=== PATIENT | female | born 1970 | race American Indian/Alaskan Native ===

== ENCOUNTER 2017-06-06 02:27 | Emergency (ER) | payer MEDICARE ==
[2017-06-06] MEDS ORDERED: Sodium Chloride 0.9% 1,000 ML IV ONE ×3 (03:44→10:47)
[2017-06-06 03:55] LABS: BASO % 0.4 % (0.0-2.0); EOS % 0.1 % (0.0-4.0); HEMATOCRIT 38.4 % (34.0-47.0); LYMPH # 1.3 K/uL (1.0-4.3); LYMPH % 11.6 % (20.0-40.0); MEAN CELL VOLUME 86.1 fL (81.0-99.0); MEAN CORPUSCULAR HEMOGLOBIN 28.1 pg (27.0-31.0); MEAN CORPUSCULAR HGB CONC 32.6 g/dL (33.0-37.0); MEAN PLATELET VOLUME 8.1 fL (7.2-11.7); MONO # 0.7 K/uL (0.0-0.8); MONO % 6.1 % (0.0-10.0); NRBC % 0.1 % (0.0-2.0); RED CELL DISTRIBUTION WIDTH 13.9 % (11.5-14.5); WHITE BLOOD COUNT 11.5 K/uL (4.8-10.8)
[2017-06-06 04:01] LABS: RBC URINE 30 /hpf (0-3); URINE BACTERIA RARE (<OCC); URINE BILIRUBIN NEGATIVE (NEGATIVE); URINE BLOOD 1+ (NEGATIVE); URINE COLOR Yellow (YELLOW); URINE GLUCOSE (UA) 3+ mg/dL (Normal); URINE KETONE 1+ mg/dL (NEGATIVE); URINE LEUKOCYTE ESTERASE 1+ Leu/uL (Negative); URINE PROTEIN 2+ mg/dL (NEGATIVE); URINE UROBILINOGEN NORMAL mg/dL (0.2-1.0); WBC URINE 80 /hpf (0-5)
[2017-06-06 04:11] LABS: ALB/GLOB RATIO 1.1 (1.0-2.1); ALKALINE PHOSPHATASE 142 U/L (38-126); ALT/SGPT 34 U/L (9-52); AST/SGOT 26 U/L (14-36); BILIRUBIN,TOTAL 0.5 mg/dL (0.2-1.3); BLOOD UREA NITROGEN 21 mg/dL (7-17); CALCIUM 9.6 mg/dl (8.6-10.4); CARBON DIOXIDE 30 mmol/L (22-30); CHLORIDE 90 mmol/L (98-107); GFR AFRICAN-AMERICAN > 60; GLUCOSE,RANDOM 313 mg/dL (65-105); POTASSIUM 4.2 mmol/L (3.6-5.2); SODIUM 136 mmol/L (132-148); TOTAL PROTEIN 7.5 g/dL (6.3-8.3)
[2017-06-06 04:33] LABS: VENOUS BLOOD GAS BASE EXCESS 6.6 mmol/L (0.0-2.0); VENOUS BLOOD GAS PCO2 44 mmHg (40-60); VENOUS BLOOD PH 7.46 (7.32-7.43)
--- NOTE | 2017-06-06 05:13 | C.PDOC ---
History Of Present Illness <Sheeba De La Rosa - Last Filed: 06/06/17 07:06> <Ekaterina Casper - Last Filed: 06/06/17 07:44> 47 y/o female, with PMHx of NIDDM, presents to the ED for evaluation of abdominal pain, nausea, and vomiting which has been ongoing questionably for around 2 weeks. Patient states she "escaped" from [facility] after being admitted for 5 days. Patient is a poor historian; she appears to have racing thoughts and goes off on tangents when speaking, making it very challenging to obtain a clear history. Patient denies any psychiatric history. (Sheeba De La Rosa) History Per: Patient History/Exam Limitations: no limitations Onset/Duration Of Symptoms: Other (2 weeks ) Current Symptoms Are (Timing): Still Present Location Of Pain/Discomfort: Diffuse Quality Of Discomfort: "Pain" Associated Symptoms: Nausea, Vomiting Additional History Per: Patient <Sheeba De La Rosa - Last Filed: 06/06/17 07:06> <Ekaterina Casper - Last Filed: 06/06/17 07:44> Time Seen by Provider: 06/06/17 02:58 Chief Complaint (Nursing): Abdominal Pain Past Medical History Reviewed: Historical Data, Nursing Documentation, Vital Signs - Medical History PMH: Anxiety, Asthma, Depression, Diabetes, HTN Denies: Hepatitis, HIV, Chronic Kidney Disease, Seizures, Sexually Transmitted Disease Surgical History: Family History: States: Unknown Family Hx - Social History Hx Tobacco Use: Yes Hx Alcohol Use: No Hx Substance Use: No - Immunization History Hx Tetanus Toxoid Vaccination: No Hx Influenza Vaccination: No Hx Pneumococcal Vaccination: No <Sheeba De La Rosa - Last Filed: 06/06/17 07:06> Review Of Systems Gastrointestinal: Positive for: Nausea, Vomiting, Abdominal Pain <Sheeba De La Rosa - Last Filed: 06/06/17 07:06> Physical Exam - Physical Exam Appears: Non-toxic, No Acute Distress Skin: Normal Color, Warm, Dry Head: Atraumatic, Normacephalic Eye(s): bilateral: Normal Inspection Oral Mucosa: Dry Neck: Supple Chest: Symmetrical, No Deformity, No Tenderness Cardiovascular: Rhythm Regular, No Murmur Respiratory: Normal Breath Sounds, No Rales, No Rhonchi, No Wheezing Gastrointestinal/Abdominal: Soft, No Tenderness, No Distention, No Guarding, No Rebound Extremity: Normal ROM, Capillary Refill (less than 2 seconds ) Neurological/Psych: Oriented x3 <Sheeba De La Rosa - Last Filed: 06/06/17 07:06> ED Course And Treatment - Laboratory Results Result Diagrams: 06/06/17 03:52 06/06/17 03:52 ECG: Interpreted By Me, Viewed By Me ECG Rhythm: Sinus Rhythm Interpretation Of ECG: Normal Sinus Rhythm at rate 93bpm. Nonspecific ST abnormality. Rate From EC O2 Sat by Pulse Oximetry: 98 (on RA) Pulse Ox Interpretation: Normal <Sheeba De La Rosa - Last Filed: 06/06/17 07:06> - Laboratory Results Result Diagrams: 06/06/17 03:52 06/06/17 03:52 <Ekaterina Casper - Last Filed: 06/06/17 07:44> Medical Decision Making <Sheeba De La Rosa - Last Filed: 06/06/17 07:06> <Ekaterina Casper - Last Filed: 06/06/17 07:44> Medical Decision Making: Impression: 47 y/o female with nausea, vomiting, and abdominal pain Plan: * labs * Zofran IV * IV Fluids * reassess and disposition Prior Records Reviewed: Review of prior records shows no record of recent hospital admission. Progress: 630 am, labs ordered and reviewed. Patient received Zofran IV and IV Fluids. Patient has been receiving IV fluids in the ED for around 4 hours and was resting comfortably all night, now patient complains of nausea, a burning sensation to her chest and chest wall tenderness and is agitated, . Will order EKG and Pepcid, get abdoninal ct, trop, ativan and re-eval. . 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 - Scribe Statement The provider has reviewed the documentation as recorded by the Scribe (Stephanie Gonzales) <Sheeba De La Rosa - Last Filed: 06/06/17 07:06> <Ekaterina Casper - Last Filed: 06/06/17 07:44> - Scribe Statement All medical record entries made by the Scribe were at my direction and personally dictated by me. I have reviewed the chart and agree that the record accurately reflects my personal performance of the history, physical exam, medical decision making, and the department course for this patient. I have also personally directed, reviewed, and agree with the discharge instructions and disposition. (Sheeba De La Rosa) Physician Patient Turnover Patient Signed Over To: Ekaterina Casper Handoff Comments: f/u ct scan, trop, re-eval pt. suggest likely admission for uti/iv antibiotic. dm control. <Sheeba De La Rosa - Last Filed: 06/06/17 07:06> Addendum <Sheeba De La Rosa - Last Filed: 06/06/17 07:06> <Ekaterina Casper - Last Filed: 06/06/17 07:44> Addendum: 06/06/17 07:38 Patient endorsed to me by SIL Wheeler at the end of her shift. Patient with hx DM , HTN and phych hx. Pt c/o NV, abdominal pain. Positive for cocaine and marijuana, On exam: sleeping comfortably, abdomen soft. Hx and physical unreliable with this patient because she is very disorganized. Pending CT Abdomen. Reffusing PO contrast. Just wants to sleep. (Ekaterina Casper)
[2017-06-06] MEDS ORDERED: Sodium Chloride 0.9% 1,000 ML IV SCH (05:15)
[2017-06-06] MEDS ORDERED: Aluminum Hydroxide/Magnesium Hydroxide Susp (30 mL) ONE (06:26)
[2017-06-06] MEDS ORDERED: Iohexol 240 (50 ml) PO ONE (06:46)
[2017-06-06] MEDS ORDERED: Aluminum Hydroxide/Magnesium Hydroxide Susp (30 mL) PO STA (06:47)
[2017-06-06] MEDS ORDERED: Iohexol 240 (50 ml) ONE (06:56)
[2017-06-06] MEDS ORDERED: Iodixanol 320 MG/ML 100 ML BOTTLE IV ONE (08:06)
--- NOTE | 2017-06-06 09:37 | CT ---
PROCEDURE: CT Abdomen and Pelvis with contrast HISTORY: ab pain COMPARISON: None. TECHNIQUE: Contrast dose: Visipaque 320, 100 cc Radiation dose: Total exam DLP = 792 mGy-cm. This CT exam was performed using one or more of the following dose reduction techniques: Automated exposure control, adjustment of the mA and/or kV according to patient size, and/or use of iterative reconstruction technique. FINDINGS: LOWER THORAX: Unremarkable. LIVER: Diffuse fatty infiltration liver is identified without discrete mass appreciated. No gross intrahepatic biliary dilatation is appreciated. GALLBLADDER AND BILE DUCTS: The gallbladder is distended with the wall not significantly thickened. No radiodense cholelithiasis or pericholecystic fluid collection is related. PANCREAS: Unremarkable. No gross lesion or ductal dilatation. SPLEEN: Unremarkable. ADRENALS: Unremarkable. No mass. KIDNEYS AND URETERS: Unremarkable. No hydronephrosis. No solid mass. VASCULATURE: Unremarkable. No aortic aneurysm. BOWEL: The lack of oral contrast limits evaluation of small and large bowel as well as the stomach, which is completely collapsed. Thickening of the ascending colon is questioned distal to the cecum and may reflect element of segmental colitis of indeterminate etiology. Consider infectious or inflammatory causes with ischemia or neoplasm not favored. APPENDIX: Normal appendix. PERITONEUM: Unremarkable. No free fluid. No free air. LYMPH NODES: [id number] bilateral inguinal lymphadenopathy is appreciated including a 2.6 x 1.3 cm right inguinal lymph node and a 2.3 x 1.8 cm left inguinal lymph node. Additional smaller but mildly enlarged lymph nodes are appreciated bilaterally as well. BLADDER: Unremarkable. REPRODUCTIVE: Air and likely phlegmon are appreciate the right pelvic side wall lateral and inferior to the plane of the right adnexal compartment suspicious for advanced cystitis or possible tubo-ovarian abscess. A dilated fallopian tube is not identified with remainder the right adnexal compartment unremarkable in fact. Etiology of this abscess is not clear although the right urinary bladder wall is irregularly thickened with questionable emphysema and cystitis may be the primary etiology. Further clinical correlation is advised. BONES: No acute fracture. OTHER FINDINGS: None. IMPRESSION: 1. Phlegmon or early abscess is seen in the right pelvic sidewall inferiorly medial lateral to and likely involving the right side of the urinary bladder wall suspicious for cystitis although tubo-ovarian abscess is possible. Dilated right fallopian tube is not identified however and further clinical correlation is advised. 2. No bowel obstruction appreciated however right gabino colon is questionably inflamed suggesting segmental colitis. The lack of oral contrast limits the evaluation of the stomach and small as well as large bowel. Please see discussion above. 3. Mild to moderate bilateral inguinal lymphadenopathy. .
[2017-06-06 10:36] VITALS: RESP 18; O2SAT 99
[2017-06-06] MEDS ORDERED: Azithromycin 500mg/250ML NS 500 MG/250 ML BAG IVPB STA (10:47)
[2017-06-06] MEDS ORDERED: cefTRIAXone IV 1 gm in Dextros 50 ML IVPB ONE ×2 (10:47→12:03)
[2017-06-06] MEDS ORDERED: Sodium Chloride 0.9% 1,000 ML ONE (11:02)
[2017-06-06] MEDS ORDERED: Azithromycin 500mg/250ML NS 500 MG/250 ML BAG IVPB ONE (12:03)
--- NOTE | 2017-06-06 14:06 | US ---
HISTORY: pelvic abscess COMPARISON: Comparison is made to the previous same-day CT of the abdomen and pelvis TECHNIQUE: Transabdominal and endovaginal ultrasound examination of the pelvis was performed. FINDINGS: UTERUS: Measures 8.2 x 3.1 x 5 cm. The uterus is anteverted demonstrate heterogeneous echotexture without evidence of discrete mass. No fibroid or other mass lesion seen. ENDOMETRIUM: Measures 5 mm in diameter. Unremarkable. CERVIX: No cervical abnormality identified. RIGHT OVARY: Measures 3.8 x 2.3 x 2.7 cm. No solid mass. Normal flow. LEFT OVARY: Measures 3.1 x 2 x 2.7 cm. No solid mass. Normal flow. FREE FLUID: No significant free fluid noted. OTHER FINDINGS: There are small echogenic foci adjacent to the uterus likely represent droplet of air seen in the previous CT. Incidentally noted is right bladder wall thickening best seen on image 37, 38 series 1. IMPRESSION: No ultrasound evidence of abscess formation in the pelvis. Heterogeneous uterus without evidence of discrete mass. Small echogenic foci seen adjacent to the uterus likely represent extraluminal air seen in the previous CT. Incidentally noted and partially imaged right bladder wall thickening. Further assessment of the urinary bladder is recommended.
[2017-06-06 19:00] VITALS: BP 142/82; PULSE 89; TEMP 98.2
[2017-06-08 19:59] LABS: VENOUS BLOOD GAS BASE EXCESS 6.8 mmol/L (0.0-2.0); VENOUS BLOOD GAS PCO2 43 mmHg (40-60); VENOUS BLOOD PH 7.47 (7.32-7.43)
== END 2017-06-06 18:50 | disposition home or self-care (01) ==
LOC: C.ER 02:27
DX: R10.9 Unspecified abdominal pain (principal)
CPT/HCPCS: 74177; 76830; 76856; 80053; 81001; 82009; 82803; 82948; 84484; 84703; 85025; 87040; 96361; 96365; 96367; 96375; 99285; G0480; J0456; J0696; J2060; J2405; J7040; Q9967

== ENCOUNTER 2017-06-08 17:01 | Emergency (ER) | payer MEDICARE ==
[2017-06-08 17:19] VITALS: TEMP 98.1
[2017-06-08] MEDS ORDERED: Sodium Chloride 0.9% 1,000 ML IV ONE (19:19)
--- NOTE | 2017-06-08 19:19 | C.PDOC ---
History Of Present Illness The patient presents today with complaints of nausea, vomiting and reports she feels as if her blood sugar is high. Patient also reports feeling anxious and has some flight of ideas. She denies any other medical complaints. Time Seen by Provider: 06/08/17 19:18 Chief Complaint (Nursing): Abdominal Pain History Per: Patient History/Exam Limitations: no limitations Onset/Duration Of Symptoms: Days Current Symptoms Are (Timing): Still Present Associated Symptoms: Nausea, Vomiting Past Medical History Reviewed: Historical Data, Nursing Documentation, Vital Signs Vital Signs: Last Vital Signs Temp 98.1 F 06/08/17 17:11 Pulse 98 H 06/08/17 17:11 Resp 20 06/08/17 17:11 BP 129/79 06/08/17 17:11 Pulse Ox 97 06/08/17 19:33 - Medical History PMH: Anxiety, Asthma, Depression, Diabetes, HTN Denies: Hepatitis, HIV, Chronic Kidney Disease, Seizures, Sexually Transmitted Disease Surgical History: - [facility] FOR SUBSTANCE ABUSE TREATMENT (07/01/15) Family History: States: Unknown Family Hx - Social History Hx Tobacco Use: Yes Hx Alcohol Use: No Hx Substance Use: No - Immunization History Hx Tetanus Toxoid Vaccination: No Hx Influenza Vaccination: No Hx Pneumococcal Vaccination: No Review Of Systems Constitutional: Positive for: Other (elevated blood sugar) Gastrointestinal: Positive for: Nausea, Vomiting Psych: Positive for: Anxiety Physical Exam - Physical Exam Appears: Non-toxic, Other (anxious) Skin: Warm, Dry Head: Normacephalic Eye(s): bilateral: Normal Inspection Lips: Other (dry) Teeth: Other (poor dentition) Neck: Supple Chest: Symmetrical Cardiovascular: Rhythm Regular Respiratory: No Decreased Breath Sounds, No Accessory Muscle Use Gastrointestinal/Abdominal: Bowel Sounds, Soft, No Tenderness Extremity: No Deformity, No Swelling Pulses: Left Dorsalis Pedis: Normal, Right Dorsalis Pedis: Normal Neurological/Psych: Other (flight of ideas) ED Course And Treatment - Laboratory Results Result Diagrams: 06/08/17 19:47 06/08/17 19:47 O2 Sat by Pulse Oximetry: 97 (RA) Pulse Ox Interpretation: Normal Progress Note: Labs, IV Fluids and Zofran ordered. Reevaluation Time: 21:55 Reassessment Condition: Improved Disposition Counseled Patient/Family Regarding: Studies Performed, Diagnosis, Need For Followup, Rx Given - Disposition Referrals: Greyson Cardenas MD [Medical Doctor] - Disposition: HOME/ ROUTINE Disposition Time: 19:19 Condition: FAIR Prescriptions: Ondansetron ODT [Zofran ODT] 1 odt PO BID PRN #10 odt PRN Reason: Nausea/Vomiting Pantoprazole Sodium [Protonix] 40 mg PO DAILY #15 ect Instructions: Abdominal Pain (ED), Acute Nausea and Vomiting (ED), Diabetic Hyperglycemia (ED) Forms: [employer] (Yemeni) - Clinical Impression Clinical Impression: Abdominal pain, Nausea & vomiting, Hyperglycemia - Scribe Statement The provider has reviewed the documentation as recorded by the Renay Billy Provider Attestation: All medical record entries made by the Renay were at my direction and personally dictated by me. I have reviewed the chart and agree that the record accurately reflects my personal performance of the history, physical exam, medical decision making, and the department course for this patient. I have also personally directed, reviewed, and agree with the discharge instructions and disposition.
[2017-06-08] MEDS ORDERED: Sodium Chloride 0.9% 1,000 ML ONE (19:46)
[2017-06-08 19:52] LABS: BASO # 0.1 K/uL (0.0-0.2); BASO % 0.8 % (0.0-2.0); EOS # 0.1 K/uL (0.0-0.7); EOS % 1.4 % (0.0-4.0); HEMATOCRIT 39.7 % (34.0-47.0); LYMPH # 2.9 K/uL (1.0-4.3); MEAN CELL VOLUME 85.6 fL (81.0-99.0); MEAN CORPUSCULAR HEMOGLOBIN 28.5 pg (27.0-31.0); MEAN CORPUSCULAR HGB CONC 33.2 g/dL (33.0-37.0); MEAN PLATELET VOLUME 7.6 fL (7.2-11.7); MONO # 0.7 K/uL (0.0-0.8); MONO % 6.6 % (0.0-10.0); RED CELL DISTRIBUTION WIDTH 13.6 % (11.5-14.5); WHITE BLOOD COUNT 10.1 K/uL (4.8-10.8)
[2017-06-08 20:03] LABS: CHLORIDE 97 mmol/L (98-107); POTASSIUM 3.7 mmol/L (3.6-5.2); SODIUM 139 mmol/L (132-148)
[2017-06-08 20:05] LABS: ALB/GLOB RATIO 1.2 (1.0-2.1); ALKALINE PHOSPHATASE 111 U/L (38-126); ALT/SGPT 36 U/L (9-52); AST/SGOT 24 U/L (14-36); BILIRUBIN,TOTAL 0.7 mg/dL (0.2-1.3); BLOOD UREA NITROGEN 19 mg/dL (7-17); CARBON DIOXIDE 31 mmol/L (22-30); GFR AFRICAN-AMERICAN > 60; GLUCOSE,RANDOM 176 mg/dL (65-105); TOTAL PROTEIN 7.7 g/dL (6.3-8.3)
[2017-06-08 20:06] LABS: CALCIUM 9.7 mg/dl (8.6-10.4)
[2017-06-08 22:30] VITALS: BP 124/75; PULSE 76; RESP 18; O2SAT 99
== END 2017-06-08 22:29 | disposition home or self-care (01) ==
LOC: C.ER 17:01
DX: E11.65 Type 2 diabetes mellitus with hyperglycemia (principal); R11.2 Nausea with vomiting, unspecified; I10 Essential (primary) hypertension; F41.9 Anxiety disorder, unspecified; F17.210 Nicotine dependence, cigarettes, uncomplicated
CPT/HCPCS: 80053; 82009; 82803; 83690; 85025; 96361; 96374; 99284; J2405; J7040

== ENCOUNTER 2017-09-07 15:08 | Inpatient (IN) | payer MEDICARE ==
--- NOTE | 2017-09-07 16:20 | C.PDOC ---
History Of Present Illness 47 y/o female, with history of diabetes, presents to the ER for detox from alcohol and substance abuse. Patient was prescreened. Patient states that she drank alcohol prior to arrival. Time Seen by Provider: 09/07/17 15:52 Chief Complaint (Nursing): Substance Abuse History Per: Patient History/Exam Limitations: no limitations Onset/Duration Of Symptoms: Hrs Current Symptoms Are (Timing): Still Present Past Medical History Reviewed: Historical Data, Nursing Documentation, Vital Signs Vital Signs: Last Vital Signs Temp 98.2 F 09/07/17 18:42 Pulse 89 09/07/17 18:42 Resp 18 09/07/17 18:42 BP 152/82 H 09/07/17 18:42 Pulse Ox 99 09/07/17 18:42 - Medical History PMH: Anxiety, Asthma, Depression, Diabetes, HTN Denies: Hepatitis, HIV, Chronic Kidney Disease, Seizures, Sexually Transmitted Disease Surgical History: - [facility]IFICATION SERVICES FOR SUBSTANCE ABUSE TREATMENT (07/01/15) Family History: States: No Known Family Hx - Social History Hx Tobacco Use: Yes Hx Alcohol Use: Yes Hx Substance Use: Yes - Immunization History Hx Tetanus Toxoid Vaccination: No Hx Influenza Vaccination: No Hx Pneumococcal Vaccination: No Review Of Systems Except As Marked, All Systems Reviewed And Found Negative. 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 17:[address] Rivas. Patient to be admitted to hospital. Disposition Discussed With DrChio: Jaxon Rivas Doctor Will See Patient In The: Hospital - Disposition Disposition: HOSPITALIZED Disposition Time: 18:00 Condition: STABLE - POA Present On Arrival: None - Clinical Impression Clinical Impression: Drug abuse, cocaine type, Alcohol abuse - PA / WELDER GAS / Resident Statement MD/DO has reviewed & agrees with the documentation as recorded. - Scribe Statement The provider has reviewed the documentation as recorded by the Kendalibe oHme Correa Provider Attestation All medical record entries made by the Kendalibkristopher were at my direction and personally dictated by me. I have reviewed the chart and agree that the record accurately reflects my personal performance of the history, physical exam, medical decision making, and the department course for this patient. I have also personally directed, reviewed, and agree with the discharge instructions and disposition. Decision To Admit - Pt Status Changed To: Hospital Disposition Of: Inpatient - Admit Certification Admit to Inpatient:: After my assessment, the patient will require hospitalization for at least two midnights. This is because of the severity of symptoms shown, intensity of services needed, and/or the medical risk in this patient being treated as an outpatient. - InPatient: Physician Admission Certification: I certify that this patient requires 2 or more midnights of care for the following reason:: Alcohol abuse disorder - . Bed Request Type: Detox Admitting Physician: Jaxon Rivas Patient Diagnosis: Drug abuse, cocaine type, Alcohol abuse
[2017-09-07 16:41] LABS: BASO # 0.1 K/uL (0.0-0.2); EOS # 0.2 K/uL (0.0-0.7); LYMPH # 1.7 K/uL (1.0-4.3); LYMPH % 29.2 % (20.0-40.0); MEAN CORPUSCULAR HEMOGLOBIN 28.6 pg (27.0-31.0); MEAN CORPUSCULAR HGB CONC 32.9 g/dL (33.0-37.0); MONO # 0.4 K/uL (0.0-0.8); NRBC % 0.1 % (0.0-2.0); RED CELL DISTRIBUTION WIDTH 14.3 % (11.5-14.5)
[2017-09-07 16:43] LABS: RBC URINE 4 /hpf (0-3); URINE BACTERIA RARE (<OCC); URINE BILIRUBIN NEGATIVE (NEGATIVE); URINE BLOOD 2+ (NEGATIVE); URINE COLOR Yellow (YELLOW); URINE GLUCOSE (UA) 1+ mg/dL (Normal); URINE KETONE NEGATIVE (NEGATIVE); URINE LEUKOCYTE ESTERASE TRACE Leu/uL (Negative); URINE PROTEIN 2+ mg/dL (NEGATIVE); URINE UROBILINOGEN NORMAL mg/dL (0.2-1.0); WBC URINE 4 /hpf (0-5)
[2017-09-07 16:57] LABS: ALB/GLOB RATIO 1.3 (1.0-2.1); ALCOHOL SERUM < 10 mg/dl (0-10); ALKALINE PHOSPHATASE 103 U/L (38-126); ALT/SGPT 45 U/L (9-52); AST/SGOT 30 U/L (14-36); BILIRUBIN,TOTAL 0.3 mg/dL (0.2-1.3); BLOOD UREA NITROGEN 16 mg/dL (7-17); CALCIUM 8.6 mg/dl (8.6-10.4); CARBON DIOXIDE 29 mmol/L (22-30); CHLORIDE 103 mmol/L (98-107); GFR AFRICAN-AMERICAN > 60; GLUCOSE,RANDOM 187 mg/dL (65-105); POTASSIUM 4.1 mmol/L (3.6-5.2); SODIUM 139 mmol/L (132-148); TOTAL PROTEIN 7.5 g/dL (6.3-8.3)
--- NOTE | 2017-09-07 18:24 | PCM.BM ---
<Mary Kay Rogers - Last Filed: 09/07/17 18:22> Treatment Plan Problems - Problems identified on initial assessmt potiential for opiate withdrawal Date Initiated: 09/07/17 Time Initiated: 18:23 Assessment reference: NA Status: Active Treatment assets and liabiliti Patient Assests: ADL independent Patient Liabilities: substance abuse, medical problems - Milieu Protocol Maintain good personal hygiene: daily Encourage regular showers, daily Remind patient to perform daily oral care, daily Assist patient to perform ADL's Maintain personal safety: every shift Educate patient to report safety concerns to staff, every shift Monitor environment for contraband/sharps Medication safety: Monitor for expected outcome, potential side effects: every shift, Assess barriers to learning: every shift, Assess readiness for medication education: every shift <Jaxon Rivas - Last Filed: 09/09/17 17:25> - Diagnosis (1) Alcohol use disorder, severe, dependence Status: Acute Interventions: 09/09/17 17:19 Assess 7x/week regarding severity of withdrawal Educate regarding risks, benefits, side effects and alternatives of medications Use Motivational Interviewing for abstinence Use CBT for relapse prevention Medication management for withdrawal symptoms Encourage medication assisted treatment (2) Cocaine use disorder, severe, dependence Status: Acute Interventions: 09/09/17 17:19 Assess 7x/week regarding severity of withdrawal Educate regarding risks, benefits, side effects and alternatives of medications Use Motivational Interviewing for abstinence Use CBT for relapse prevention Medication management for withdrawal symptoms Encourage medication assisted treatment (3) Major depressive disorder, recurrent, severe with psychotic features Status: Acute Interventions: 09/09/17 17:25 Assess/adjust medications daily and /or as needed * See patient on an individual basis 7x/week to assess status of hallucinations * Discuss risks, benefits, side effects and alternatives of medications (4) Chronic post-traumatic stress disorder (PTSD) Status: Acute Interventions: 09/09/17 17:25 Assess/adjust medications daily and /or as needed * See patient on an individual basis 7x/week to assess status of hallucinations * Discuss risks, benefits, side effects and alternatives of medications
[2017-09-07] MEDS ORDERED: traZODone 25 mg Tab PO PRN (20:17)
[2017-09-07] MEDS ORDERED: (Novolog) Insulin Aspart, Recombinant 100 u/ml 10 ml vial SC STA (20:41)
[2017-09-07] MEDS: (Novolog) Insulin Aspart, Recombinant 100 u/ml 10 ml vial SC SCH (21:07)
[2017-09-08] MEDS: (Novolog) Insulin Aspart, Recombinant 100 u/ml 10 ml vial SC SCH ×4 (07:48→22:07)
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
[2017-09-08] MEDS: Pantoprazole 40 mg EC Tab PO SCH (15:22)
[2017-09-08] MEDS: Multiple Vitamins Tab PO SCH (15:22)
[2017-09-09] MEDS ORDERED: Aluminum Hydroxide/Magnesium Hydroxide Susp (30 mL) PO PRN (07:33)
[2017-09-09] MEDS: (Novolog) Insulin Aspart, Recombinant 100 u/ml 10 ml vial SC SCH ×5 (08:40→22:01)
--- NOTE | 2017-09-09 09:54 | PCM.RRT ---
<Franca Huitron - Last Filed: 09/09/17 09:51> DENTAL MECHANIC Nurses Assessment - Situation Date: 09/09/17 Time DENTAL MECHANIC was called: 08:55 DENTAL MECHANIC Responder Arrival Time:: 09:00 DENTAL MECHANIC Location:: Med/Detox Room Number: 760B DENTAL MECHANIC Reason for Call: Hypertension DENTAL MECHANIC Called By: RN - IV IV Inserted during DENTAL MECHANIC?: No - Respiratory DENTAL MECHANIC Delivery Method: Room Air Received Nebulizer Treatments: No Was the Patient Ventilated with Bag/Mask 100% O2?: No Secretions Suctioned?: No Was the Patient Intubated?: No Was the Patient Placed on a Ventilator?: No - Medication Medications Administered During DENTAL MECHANIC: Ativan 2 mg I/M - Diagnostic Test Ordered EKG: Yes Chest X-Ray: No CT Scan: No - Stat Labs Ordered DENTAL MECHANIC Other Labs Ordered: ETHEL Panel CPR started during DENTAL MECHANIC?: No - Vital Signs Vital Signs: Rapid Response Vital Sign Blood Pressure 212/105 Pulse Rate 100 Respiratory Rate 18 Temperature 97.3 F Oxygen Saturation 96 - Zenaida Coma Scale Coma Scale Eye Opening: Spontaneous Coma Scale Motor: Obeys Commands Movement Coma Scale Verbal: Confused/able to answer Coma Scale Total: 14 - Time DENTAL MECHANIC Ended Time DENTAL MECHANIC Ended: 09:25 - Vital Signs at end of DENTAL MECHANIC Vital Signs at end of DENTAL MECHANIC: Rapid Response End Vital Sign Blood Pressure 216/125 Pulse Rate 84 Respiratory Rate 20 Temperature 98.1 F O2 Sat by Pulse Oximetry 96 - Recommendations Notifications: Attending Physician I.Reason for DENTAL MECHANIC - A) Acute Change in Patient: (Select all that apply): Staff member or family is worried about patient Subjective: DENTAL MECHANIC was called 08:53 for high blood pressure. PAtient seen and examined at bedside. writhing with discomfort and stating it feels like something is squeezing her chest. Patient admits to nausea, vomiting. Patient denies fever, chills, headache, diarrhea, constipation. Patient states she is detox for $100 worth of cocaine. Patient admits to marijuana as well. Patient feels like something is crawling on her. - Neurological Status (Select all that apply): Alert, Responsive, Verbal, Lethargic - Respiratory Oxygen Delivery Method: Room Air - Constitutional Appears: Toxic, No Acute Distress, Agitated - Head Head Exam: ATRAUMATIC, NORMAL INSPECTION, NORMOCEPHALIC - Eyes Eye Exam: EOMI, Normal appearance - Respiratory Exam Respiratory Exam: Decreased Breath Sounds, Clear to Ausculation Bilateral, NORMAL BREATHING PATTERN. absent: Accessory Muscle Use - Cardiovascular Exam Cardiovascular Exam: Tachycardia, REGULAR RHYTHM, +S1, +S2 - GI/Abdominal Exam GI & Abdominal Exam: Distended, Soft. absent: Firm, Tenderness - Neurological Exam Neurological Exam: Awake Additional exam: patient appears to be dizzy upon attempt to sit up. - Extremities Exam Extremities Exam: Full ROM, Normal Inspection. absent: Joint Swelling, Pedal Edema Plan - Assessment of Findings&Treatment Plan EKG ETHEL Kendra ordered patient's blood pressure was 200 systolic. Patient switched to telemetry with medicine as consult and psychiatry as primary. will follow <Christopher Gandhi Shelby - Last Filed: 09/09/17 12:59> DENTAL MECHANIC Nurses Assessment - Vital Signs Vital Signs: Rapid Response Vital Sign Blood Pressure 212/105 Pulse Rate 100 Respiratory Rate 18 Temperature 97.3 F Oxygen Saturation 96 - Vital Signs at end of DENTAL MECHANIC Vital Signs at end of DENTAL MECHANIC: Rapid Response End Vital Sign Blood Pressure 194/90 Pulse Rate 88 Respiratory Rate 20 Temperature 98.1 F O2 Sat by Pulse Oximetry 96 Attending/Attestation - Attestation I have personally seen and examined this patient.: Yes I have fully participated in the care of the patient.: Yes I have reviewed all pertinent clinical information, including history, physical exam and plan: Yes Notes (Text): 09/09/17 12:47 Hospitalist: DENTAL MECHANIC was called after the patient was found to have elevated BP of systolic BP 200 range as well as tacycardia She has been vommitting a lot during the day and from what I am being told by the staff she vomitted up all her medication and could not hold down the clonodine as well as the librium that she is supposed to get. My immediate concern was potetial rebound affect from not getting the clonodine and not having medication for drug withdrawl. Orders were given to admininster ativan 2mg IM stat and this was done. Also EKG , and CE drawn. She was anxious and saying that she had nasuea. She vommitted in a basin when we were there. She appeared to be sweaty/diaphoretic as well. Per a brief review of the chart she is at [facility] detox for polysubstance abuse including cocaine. EKG was NSR and looked stable. CE negative as well. I later returned at 11:45 AM to reassess the patient. She was now sleeping, snorring loudly. She looks calm. The systolic BP was 150s at this time. I asked them to search the room in case she could have had amounts of cocaine with her. I explained to the [facility] staff that if she wakes up and is not nauseated - that she should definaly try to take her medications. I'll come by again in a few hours to see her again and if her BP is unstable or there is worsening findings then we can move her to telemetry. thank you Christopher Gandhi
[2017-09-09] MEDS: Multiple Vitamins Tab PO SCH ×2 (10:39→18:40)
[2017-09-09] MEDS: Pantoprazole 40 mg EC Tab PO SCH (10:41)
--- NOTE | 2017-09-09 14:51 | PCM.PYCHPN ---
Psychiatric Progress Note - Psychiatric Progress Note Patient seen today, length of contact: 18 minutes Patient Chief Complaint: "I have stomach pains" Problems Identified/Issues Discussed: Pt was seen and evaluated. Chart reviewed. SENIOR SALES ASSOCIATE was called in the morning for high BP, as well as pt had multiple episodes of vomiting. The pt stated that she had stomach pain, n/v, feeling, hot and cold flushes are worse today. The pt reported that she was abusing alcohol as well as cocaine daily. case discussed with staff and medical team including Dr. Gonzales and Dr. Gandhi. This pt needs more time to stabilize. After care discussed, support and psychoeducation given. DSM 5 Symptoms Update: Alcohol dependence, severe, withdrawal symptoms. Cocaine dependence, Cocaine withdrawal symptoms, Cannabis use d/o, HTN Medication Change: Yes (ativan taper) Medical Record Reviewed: Yes Consults ordered or reviewed: Medicine team Mental Status Examination - Cognitive Function Orientation: Person, Place, Situation, Time Memory: Intact Attention: WNL Concentration: WNL Association: WNL Fund of Knowledge: [facility] Decription of patient's judgement and insights: fair/fair Addtional comments: Cooperative - Mood Mood: Anxious - Affect Affect: Constricted - Speech Speech: Appropriate - Formal Thought Process Formal Thought Process: No Impairment Psychotic Thoughts and Behaviors: denied Additional comments: no delusions, or AVH - Suicidal Ideation Suicidal Ideation: No - Homicidal Ideation Homicidal Ideation: No Goal/Treatment Plan - Goal/Treatment Plan Need for Continued Stay: Discharge may exacerbated symptoms, Other (alcohol withdrawal symtpoms) Progress Toward Problem(s) and Goals/Treatment Plan: Pt needs more time to complete detox. Continue treatment as per primary team. Monitor vitals. Supportive therapy provided. Appreciate medicine team recommendation. Estimated Date of D/C: 09/13/17
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
[2017-09-09] MEDS ORDERED: Enalaprilat 2.5 MG/2 ML IV SCH (18:00)
[2017-09-09] MEDS: (Novolin R) Insulin Human Regular 100 units/ml vial SC SCH (22:01)
[2017-09-10] MEDS ORDERED: Enalaprilat 2.5 MG/2 ML IV SCH (01:34)
[2017-09-10 06:58] LABS: BASO % 0.4 % (0.0-2.0); EOS % 0.1 % (0.0-4.0); HEMATOCRIT 43.7 % (34.0-47.0); LYMPH # 1.1 K/uL (1.0-4.3); LYMPH % 14.3 % (20.0-40.0); MEAN CELL VOLUME 86.1 fL (81.0-99.0); MEAN CORPUSCULAR HEMOGLOBIN 28.5 pg (27.0-31.0); MEAN CORPUSCULAR HGB CONC 33.1 g/dL (33.0-37.0); MEAN PLATELET VOLUME 8.6 fL (7.2-11.7); MONO # 0.6 K/uL (0.0-0.8); MONO % 8.2 % (0.0-10.0); RED CELL DISTRIBUTION WIDTH 14.2 % (11.5-14.5); WHITE BLOOD COUNT 7.4 K/uL (4.8-10.8)
[2017-09-10 07:57] LABS: ALB/GLOB RATIO 1.3 (1.0-2.1); ALKALINE PHOSPHATASE 124 U/L (38-126); ALT/SGPT 33 U/L (9-52); AST/SGOT 28 U/L (14-36); BILIRUBIN,TOTAL 0.5 mg/dL (0.2-1.3); BLOOD UREA NITROGEN 18 mg/dL (7-17); CALCIUM 9.1 mg/dl (8.6-10.4); CARBON DIOXIDE 32 mmol/L (22-30); CHLORIDE 100 mmol/L (98-107); CHOLESTEROL 280 mg/dL (0-199); GFR AFRICAN-AMERICAN > 60; GLUCOSE,RANDOM 281 mg/dL (65-105); MAGNESIUM 1.7 mg/dL (1.6-2.3); PHOSPHOROUS 3.3 mg/dL (2.5-4.5); POTASSIUM 3.9 mmol/L (3.6-5.2); SODIUM 138 mmol/L (132-148); TOTAL PROTEIN 7.5 g/dL (6.3-8.3)
[2017-09-10] MEDS: Enalaprilat 2.5 MG/2 ML IV SCH ×3 (08:10→17:54)
[2017-09-10] MEDS: (Novolin R) Insulin Human Regular 100 units/ml vial SC SCH (09:11)
[2017-09-10] MEDS: (Novolog) Insulin Aspart, Recombinant 100 u/ml 10 ml vial SC SCH ×7 (09:17→22:19)
[2017-09-10] MEDS: Multiple Vitamins Tab PO SCH (11:19)
--- NOTE | 2017-09-10 13:22 | CP.PCM.PN ---
<Sebastien Caballero - Last Filed: 09/10/17 17:19> Subjective - Date & Time of Evaluation Date of Evaluation: 09/10/17 Time of Evaluation: 08:40 - Subjective Subjective: Medicine Progress Note Patient seen and examined at bedside. Patient was in a very deep sleep at the time of encounter. She was unable to be woken by myself and the nurse at bedside. No acute events overnight per nursing. ROS unable to ascertain. Objective - Vital Signs/Intake and Output Vital Signs (last 24 hours): Temp Pulse Resp BP Pulse Ox 97.4 F L 112 H 20 185/86 H 96 09/10/17 07:58 09/10/17 07:58 09/10/17 07:58 09/10/17 08:10 09/10/17 07:58 Intake and Output: 09/10/17 09/10/17 06:59 18:59 Intake Total 240 Balance 240 - Medications Medications: Current Medications Enalapril Maleate (Vasotec) 10 mg PO DAILY [facility] Enalaprilat (Vasotec) 1.25 mg IV BID [facility] Last Admin: 09/10/17 10:45 Dose: Not Given Folic Acid (Folic Acid) 1 mg PO DAILY [facility] Last Admin: 09/10/17 11:19 Dose: Not Given Gabapentin (Neurontin) 100 mg PO TID [facility] Last Admin: 09/10/17 11:20 Dose: Not Given Hydralazine HCl (Apresoline) 10 mg IVP Q6H PRN PRN Reason: for SBP > 160 Last Admin: 09/10/17 09:18 Dose: 10 mg Insulin Aspart (Novolog) 5 unit SC ACHS [facility] Last Admin: 09/10/17 12:07 Dose: 5 unit Insulin Aspart (Novolog) 0 unit SC ACHS [facility] PRN Reason: Protocol Last Admin: 09/10/17 12:08 Dose: 2 unit Lorazepam (Ativan) 2 mg IVP Q4H [facility] Last Admin: 09/10/17 10:53 Dose: Not Given Multivitamins (Hexavitamin) 1 tab PO DAILY [facility] Last Admin: 09/10/17 11:19 Dose: Not Given Nicotine (Nicoderm Cq) 1 patch TD DAILY [facility] Last Admin: 09/10/17 11:20 Dose: Not Given Ondansetron HCl (Zofran Inj) 4 mg IVP Q6H PRN PRN Reason: Nausea/Vomiting Last Admin: 09/09/17 18:21 Dose: 4 mg Quetiapine Fumarate (Seroquel) 50 mg PO HS [facility] Last Admin: 09/09/17 22:04 Dose: Not Given Sertraline HCl (Zoloft) 50 mg PO DAILY [facility] Last Admin: 09/10/17 11:20 Dose: Not Given Thiamine HCl (Vitamin B1 Tab) 100 mg PO DAILY [facility] Last Admin: 09/10/17 11:20 Dose: Not Given - Labs Labs: 09/10/17 06:46 09/10/17 06:46 - Constitutional Appears: No Acute Distress - Head Exam Head Exam: ATRAUMATIC, NORMOCEPHALIC - ENT Exam ENT Exam: Mucous Membranes Moist - Respiratory Exam Respiratory Exam: Clear to Ausculation Bilateral. absent: Rales, Rhonchi, Wheezes - Cardiovascular Exam Cardiovascular Exam: REGULAR RHYTHM, +S1, +S2 - GI/Abdominal Exam GI & Abdominal Exam: Soft, Normal Bowel Sounds. absent: Tenderness - Extremities Exam Extremities Exam: absent: Pedal Edema - Psychiatric Exam Additional comments: Patient in deep sleep. Unable to arouse. - Skin Skin Exam: Dry, Warm Assessment and Plan - Assessment and Plan (Free Text) Plan: Malignant Hypertension All PO medications have been put on hold as patient is unable to tolerate Vasotec 1.25 mg IV BID, last dose will be tonight Trial of Vasotec 10 mg PO daily tomorrow morning Ordered Hydralazine 10mg IVP Q6h PRN for SBP >160 Beta Barby use is contraindicated due to history of recent cocaine use Nausea/ Vomiting Zofran 4mg IVP Q6h PRN for nausea Ordered Clear liquids Diabetes RISS Accucheck ACHS AC insulin reduced from 10U to 5U HgbA1C 7.7 lipid panel: 280 TGs, LDL 142, HDL 133 Hyperlipidemia Once the patient is able to tolerate PO, a statin may be started. Patient will need outpatient follow up since she is high risk for stroke given her diabetes and polysubstance abuse history. Cocaine Use Disorder Management as per primary team Alcohol abuse/ Withdrawal Ativan 2mg IVP Q4h until patient is able to tolerate PO All additional management as per primary team It is likely that the malignant hypertension is due to withdrawal from cocaine and alcohol. However, since the patient is a known diabetic, she will need to start on an BAYRON inhibitor as an outpatient for the renal protective effects. She will also need outpatient follow up and to repeat a lipid panel fasting at least 15 hours prior to blood work. When the primary team (psychiatry) discharges this patient, she will need to go home on an ACEi and a statin. It is very important that the patient follows up with her primary physician because she has many risk factors for strokes. Case DW Dr. Inga Caballero <Hesham Xiong - Last Filed: 09/11/17 16:45> Objective - Vital Signs/Intake and Output Vital Signs (last 24 hours): Temp Pulse Resp BP Pulse Ox 97.9 F 112 H 20 146/84 96 09/11/17 14:31 09/11/17 14:31 09/11/17 14:31 09/11/17 14:31 09/11/17 14:31 Intake and Output: 09/11/17 09/11/17 06:59 18:59 Intake Total 800 400 Balance 800 400 - Medications Medications: Current Medications Amlodipine Besylate (Norvasc) 5 mg PO DAILY [facility] Enalapril Maleate (Vasotec) 10 mg PO DAILY [facility] Last Admin: 09/11/17 09:45 Dose: 10 mg Enoxaparin Sodium (Lovenox) 40 mg SC DAILY [facility] Last Admin: 09/11/17 14:27 Dose: 40 mg Folic Acid (Folic Acid) 1 mg PO DAILY [facility] Last Admin: 09/11/17 09:48 Dose: 1 mg Insulin Aspart (Novolog) 5 unit SC ACHS [facility] Last Admin: 09/11/17 12:25 Dose: 5 unit Insulin Aspart (Novolog) 0 unit SC ACHS [facility] PRN Reason: Protocol Last Admin: 09/11/17 12:25 Dose: 6 unit Lorazepam (Ativan) 1 mg PO Q4H PRN PRN Reason: EtOH withdrawal Multivitamins (Hexavitamin) 1 tab PO DAILY [facility] Last Admin: 09/11/17 09:48 Dose: 1 tab Nicotine (Nicoderm Cq) 1 patch TD DAILY [facility] Last Admin: 09/11/17 11:03 Dose: Not Given Ondansetron HCl (Zofran Inj) 4 mg IVP Q6H PRN PRN Reason: Nausea/Vomiting Last Admin: 09/09/17 18:21 Dose: 4 mg Quetiapine Fumarate (Seroquel) 50 mg PO HS [facility] Last Admin: 09/10/17 22:19 Dose: Not Given Rosuvastatin Calcium (Crestor) 10 mg PO HS [facility] Sertraline HCl (Zoloft) 50 mg PO DAILY [facility] Last Admin: 09/11/17 09:48 Dose: 50 mg Thiamine HCl (Vitamin B1 Tab) 100 mg PO DAILY [facility] Last Admin: 09/11/17 09:47 Dose: 100 mg - Labs Labs: 09/11/17 07:03 09/11/17 07:03 Attending/Attestation - Attestation I have personally seen and examined this patient.: Yes I have fully participated in the care of the patient.: Yes I have reviewed all pertinent clinical information, including history, physical exam and plan: Yes Notes (Text): Patient was seen and examined Patient was getting ativa fro alcohol withdrawal, .s/p Ativan,sleeping We will start her on ACEI,try to avoid prn antihypertensives I agree with the documentation assessment and the plan of the resident
--- NOTE | 2017-09-10 14:50 | PCM.PYCHPN ---
Psychiatric Progress Note - Psychiatric Progress Note Patient seen today, length of contact: 18 minutes Patient Chief Complaint: " I am very sleepy and weak" Problems Identified/Issues Discussed: Patient was seen and evaluated at bedside. Patient was very drowsy, sleepy and unable to participate in answer questions in details. Patient reports that she feels very sleepy and weak. Patient needs more time to stabilize Medication Change: Yes (ativan taper) Medical Record Reviewed: Yes Mental Status Examination - Cognitive Function Orientation: Person, Place, Situation, Time Addtional comments: Unable to evaluate memory, attention, concentration, association due to patient being very sleepy and drowsy - Mood Mood: Depressed - Affect Affect: Depressed - Speech Speech: Appropriate - Formal Thought Process Additional comments: Unable to evaluate formal thought process as patient was very sleepy and unable to participate in a full/substantial conversation - Suicidal Ideation Suicidal Ideation: No - Homicidal Ideation Homicidal Ideation: No Goal/Treatment Plan - Goal/Treatment Plan Need for Continued Stay: Discharge may exacerbated symptoms, Other (alcohol withdrawal symtpoms) Progress Toward Problem(s) and Goals/Treatment Plan: Pt needs more time to complete detox. Continue treatment as per primary team. Monitor vitals. Supportive therapy provided. Appreciate medicine team recommendation. Estimated Date of D/C: 09/13/17
[2017-09-10] MEDS ORDERED: Sodium Chloride 0.9% 1,000 ML IV ONE (21:10)
[2017-09-11] MEDS: Sodium Chloride 0.9% 1,000 ML IV SCH ×2 (05:30→11:05)
[2017-09-11 07:17] LABS: BASO % 0.5 % (0.0-2.0); EOS % 0.2 % (0.0-4.0); HEMATOCRIT 43.5 % (34.0-47.0); LYMPH # 1.3 K/uL (1.0-4.3); LYMPH % 17.1 % (20.0-40.0); MEAN CELL VOLUME 86.8 fL (81.0-99.0); MEAN CORPUSCULAR HGB CONC 33.4 g/dL (33.0-37.0); MEAN PLATELET VOLUME 8.5 fL (7.2-11.7); MONO # 0.7 K/uL (0.0-0.8); MONO % 9.3 % (0.0-10.0); NRBC % 0.2 % (0.0-2.0); RED CELL DISTRIBUTION WIDTH 14.3 % (11.5-14.5); WHITE BLOOD COUNT 7.4 K/uL (4.8-10.8)
[2017-09-11 07:56] LABS: ALB/GLOB RATIO 1.3 (1.0-2.1); ALKALINE PHOSPHATASE 103 U/L (38-126); ALT/SGPT 17 U/L (9-52); AST/SGOT 21 U/L (14-36); BILIRUBIN,TOTAL 0.6 mg/dL (0.2-1.3); BLOOD UREA NITROGEN 24 mg/dL (7-17); CALCIUM 8.8 mg/dl (8.6-10.4); CARBON DIOXIDE 29 mmol/L (22-30); CHLORIDE 101 mmol/L (98-107); GFR AFRICAN-AMERICAN > 60; GLUCOSE,RANDOM 263 mg/dL (65-105); MAGNESIUM 1.8 mg/dL (1.6-2.3); PHOSPHOROUS 4.5 mg/dL (2.5-4.5); POTASSIUM 3.9 mmol/L (3.6-5.2); SODIUM 137 mmol/L (132-148); TOTAL PROTEIN 6.8 g/dL (6.3-8.3)
[2017-09-11] MEDS: (Novolog) Insulin Aspart, Recombinant 100 u/ml 10 ml vial SC SCH ×8 (08:30→21:37)
--- NOTE | 2017-09-11 09:26 | CP.PCM.PN ---
<Melo Guzman - Last Filed: 09/11/17 13:42> Subjective - Date & Time of Evaluation Date of Evaluation: 09/11/17 Time of Evaluation: 09:26 - Subjective Subjective: PGY1 Progress Note for Dr. Xiong Patient was seen and examined this morning at bedside. Patient was difficult to arouse. Every time she was awoken, she fell back to sleep quickly without answering any questions. ROS unattainable. Objective - Vital Signs/Intake and Output Vital Signs (last 24 hours): Temp Pulse Resp BP Pulse Ox 98 F 118 H 18 163/93 H 98 09/11/17 07:00 09/11/17 07:00 09/11/17 07:00 09/11/17 07:00 09/11/17 07:00 Intake and Output: 09/11/17 09/11/17 06:59 18:59 Intake Total 800 Balance 800 - Medications Medications: Current Medications Enalapril Maleate (Vasotec) 10 mg PO DAILY [facility] Folic Acid (Folic Acid) 1 mg PO DAILY [facility] Last Admin: 09/10/17 11:19 Dose: Not Given Gabapentin (Neurontin) 100 mg PO TID [facility] Last Admin: 09/10/17 18:41 Dose: Not Given Sodium Chloride (Sodium Chloride 0.9%) 1,000 mls @ 100 mls/hr IV .Q10H [facility] Last Admin: 09/11/17 05:30 Dose: 100 mls/hr Insulin Aspart (Novolog) 5 unit SC ACHS [facility] Last Admin: 09/10/17 22:19 Dose: Not Given Insulin Aspart (Novolog) 0 unit SC ACHS [facility] PRN Reason: Protocol Last Admin: 09/10/17 22:08 Dose: Not Given Lorazepam (Ativan) 2 mg IVP Q4H [facility] Last Admin: 09/11/17 05:29 Dose: 2 mg Multivitamins (Hexavitamin) 1 tab PO DAILY [facility] Last Admin: 09/10/17 11:19 Dose: Not Given Nicotine (Nicoderm Cq) 1 patch TD DAILY [facility] Last Admin: 09/10/17 11:20 Dose: Not Given Ondansetron HCl (Zofran Inj) 4 mg IVP Q6H PRN PRN Reason: Nausea/Vomiting Last Admin: 09/09/17 18:21 Dose: 4 mg Quetiapine Fumarate (Seroquel) 50 mg PO HS [facility] Last Admin: 09/10/17 22:19 Dose: Not Given Sertraline HCl (Zoloft) 50 mg PO DAILY [facility] Last Admin: 09/10/17 11:20 Dose: Not Given Thiamine HCl (Vitamin B1 Tab) 100 mg PO DAILY [facility] Last Admin: 09/10/17 11:20 Dose: Not Given - Labs Labs: 09/11/17 07:03 09/11/17 07:03 - Constitutional Appears: Non-toxic, No Acute Distress - ENT Exam ENT Exam: Mucous Membranes Moist - Respiratory Exam Respiratory Exam: Clear to Ausculation Bilateral, NORMAL BREATHING PATTERN. absent: Accessory Muscle Use, Respiratory Distress Additional comments: snoring - Cardiovascular Exam Cardiovascular Exam: REGULAR RHYTHM - GI/Abdominal Exam GI & Abdominal Exam: Soft. absent: Distended, Firm, Guarding, Rigid, Tenderness - Extremities Exam Extremities Exam: absent: Pedal Edema - Neurological Exam Neurological Exam: Alert (responded to painful stimuli but quickly fell back asleep) - Skin Skin Exam: Dry, Warm Assessment and Plan - Assessment and Plan (Free Text) Plan: Malignant Hypertension All PO medications have been put on hold as patient is unable to tolerate Vasotec 10 mg PO daily Amlodipine 5 mg PO daily Discontinue NS Beta Barby use is contraindicated due to history of recent cocaine use Nausea/ Vomiting Resolved Zofran 4 mg IVP q6h PRN Started on carbo consistent diet Diabetes RISS Accucheck ACHS AC insulin reduced from 10U to 5U HgbA1C 7.7 Hyperlipidemia lipid panel: 280 TGs, LDL 142, HDL 133 Crestor 10 mg PO HS Cocaine Use Disorder Management as per primary team Alcohol abuse/ Withdrawal Ativan 2mg IVP Q4h - decreased to Ativan 1mg PO q4h PRN All additional management as per primary team Prophylactic Care Lovenox 40 mg SC daily It is likely that the malignant hypertension is due to withdrawal from cocaine and alcohol. However, since the patient is a known diabetic, she will need to start on an BAYRON inhibitor as an outpatient for the renal protective effects. She will also need outpatient follow up and to repeat a lipid panel fasting at least 15 hours prior to blood work. When the primary team (psychiatry) discharges this patient, she will need to go home on an ACEi and a statin. It is very important that the patient follows up with her primary physician because she has many risk factors for strokes. Case discussed with Dr. Inga Woon PGY1 <Hesham Xiong - Last Filed: 09/11/17 16:48> Objective - Vital Signs/Intake and Output Vital Signs (last 24 hours): Temp Pulse Resp BP Pulse Ox 98.7 F 114 H 20 136/83 95 09/11/17 15:10 09/11/17 15:10 09/11/17 15:10 09/11/17 15:10 09/11/17 15:10 Intake and Output: 09/11/17 09/11/17 06:59 18:59 Intake Total 800 400 Balance 800 400 - Medications Medications: Current Medications Amlodipine Besylate (Norvasc) 5 mg PO DAILY [facility] Enalapril Maleate (Vasotec) 10 mg PO DAILY [facility] Last Admin: 09/11/17 09:45 Dose: 10 mg Enoxaparin Sodium (Lovenox) 40 mg SC DAILY [facility] Last Admin: 09/11/17 14:27 Dose: 40 mg Folic Acid (Folic Acid) 1 mg PO DAILY [facility] Last Admin: 09/11/17 09:48 Dose: 1 mg Insulin Aspart (Novolog) 5 unit SC ACHS [facility] Last Admin: 09/11/17 12:25 Dose: 5 unit Insulin Aspart (Novolog) 0 unit SC ACHS [facility] PRN Reason: Protocol Last Admin: 09/11/17 12:25 Dose: 6 unit Lorazepam (Ativan) 1 mg PO Q4H PRN PRN Reason: EtOH withdrawal Multivitamins (Hexavitamin) 1 tab PO DAILY [facility] Last Admin: 09/11/17 09:48 Dose: 1 tab Nicotine (Nicoderm Cq) 1 patch TD DAILY [facility] Last Admin: 09/11/17 11:03 Dose: Not Given Ondansetron HCl (Zofran Inj) 4 mg IVP Q6H PRN PRN Reason: Nausea/Vomiting Last Admin: 09/09/17 18:21 Dose: 4 mg Quetiapine Fumarate (Seroquel) 50 mg PO HS [facility] Last Admin: 09/10/17 22:19 Dose: Not Given Rosuvastatin Calcium (Crestor) 10 mg PO HS [facility] Sertraline HCl (Zoloft) 50 mg PO DAILY [facility] Last Admin: 09/11/17 09:48 Dose: 50 mg Thiamine HCl (Vitamin B1 Tab) 100 mg PO DAILY [facility] Last Admin: 09/11/17 09:47 Dose: 100 mg - Labs Labs: 09/11/17 07:03 09/11/17 07:03 Attending/Attestation - Attestation I have personally seen and examined this patient.: Yes I have fully participated in the care of the patient.: Yes I have reviewed all pertinent clinical information, including history, physical exam and plan: Yes Notes (Text): Patient was seen and examined,Had her breakfast and sleeping.c/o feeling weak and unable to keep her up. stop Ativan 2mg q4hrly,give Ativan 1mg q4hrly prn continue ACEI and statin Add amlodipine monitor BP d/w psychiatrist
[2017-09-11] MEDS: Multiple Vitamins Tab PO SCH (09:48)
[2017-09-11] MEDS: Enoxaparin 40 mg Syringe SC SCH (14:27)
[2017-09-12 06:53] LABS: BASO % 0.4 % (0.0-2.0); EOS % 0.5 % (0.0-4.0); HEMATOCRIT 42.1 % (34.0-47.0); LYMPH # 1.6 K/uL (1.0-4.3); LYMPH % 21.4 % (20.0-40.0); MEAN CELL VOLUME 86.5 fL (81.0-99.0); MEAN CORPUSCULAR HGB CONC 33.6 g/dL (33.0-37.0); MEAN PLATELET VOLUME 8.3 fL (7.2-11.7); MONO # 0.7 K/uL (0.0-0.8); MONO % 8.8 % (0.0-10.0); RED CELL DISTRIBUTION WIDTH 14.4 % (11.5-14.5); WHITE BLOOD COUNT 7.5 K/uL (4.8-10.8)
--- NOTE | 2017-09-12 06:57 | CP.PCM.PN ---
<Melo Guzman - Last Filed: 09/12/17 19:58> Subjective - Date & Time of Evaluation Date of Evaluation: 09/12/17 Time of Evaluation: 06:54 - Subjective Subjective: PGY1 Medicine Note for Dr. Xiong Patient seen and examined at bedside this morning. Patient is more awake and alert this morning. She did not want to wake up for the exam but did answer questions. Patient states she did not sleep well through the night. She states she is anxious. Patient denies fevers, chills, diarrhea, constipation, palpitations, chest pain, abdominal pain, numbness or tingling. Objective - Vital Signs/Intake and Output Vital Signs (last 24 hours): Temp Pulse Resp BP Pulse Ox 99 F 120 H 20 145/81 100 09/12/17 04:00 09/12/17 04:00 09/12/17 04:00 09/12/17 04:00 09/11/17 23:05 Intake and Output: 09/11/17 09/12/17 18:59 06:59 Intake Total 400 480 Balance 400 480 - Medications Medications: Current Medications Amlodipine Besylate (Norvasc) 5 mg PO DAILY [facility] Enalapril Maleate (Vasotec) 10 mg PO DAILY [facility] Last Admin: 09/11/17 09:45 Dose: 10 mg Enoxaparin Sodium (Lovenox) 40 mg SC DAILY [facility] Last Admin: 09/11/17 14:27 Dose: 40 mg Folic Acid (Folic Acid) 1 mg PO DAILY [facility] Last Admin: 09/11/17 09:48 Dose: 1 mg Insulin Aspart (Novolog) 5 unit SC [facility] Last Admin: 09/11/17 21:37 Dose: Not Given Insulin Aspart (Novolog) 0 unit SC [facility] PRN Reason: Protocol Last Admin: 09/11/17 21:20 Dose: Not Given Lorazepam (Ativan) 1 mg PO Q4H PRN PRN Reason: EtOH withdrawal Multivitamins (Hexavitamin) 1 tab PO DAILY [facility] Last Admin: 09/11/17 09:48 Dose: 1 tab Nicotine (Nicoderm Cq) 1 patch TD DAILY [facility] Last Admin: 09/11/17 11:03 Dose: Not Given Ondansetron HCl (Zofran Inj) 4 mg IVP Q6H PRN PRN Reason: Nausea/Vomiting Last Admin: 12/17/17 18:21 Dose: 4 mg Quetiapine Fumarate (Seroquel) 50 mg PO HS [facility] Last Admin: 09/11/17 21:54 Dose: 50 mg Rosuvastatin Calcium (Crestor) 10 mg PO HS [facility] Last Admin: 09/11/17 21:54 Dose: 10 mg Sertraline HCl (Zoloft) 50 mg PO DAILY [facility] Last Admin: 09/11/17 09:48 Dose: 50 mg Thiamine HCl (Vitamin B1 Tab) 100 mg PO DAILY [facility] Last Admin: 09/11/17 09:47 Dose: 100 mg - Labs Labs: 09/11/17 07:03 09/11/17 07:03 - Constitutional Appears: Non-toxic, No Acute Distress - Head Exam Head Exam: ATRAUMATIC, NORMOCEPHALIC - Eye Exam Eye Exam: EOMI, Normal appearance - ENT Exam ENT Exam: Mucous Membranes Moist - Respiratory Exam Respiratory Exam: Clear to Ausculation Bilateral, NORMAL BREATHING PATTERN. absent: Rales, Wheezes Additional comments: falls back to sleep very quickly, loud snoring. - Cardiovascular Exam Cardiovascular Exam: REGULAR RHYTHM, +S1 - GI/Abdominal Exam GI & Abdominal Exam: Soft, Normal Bowel Sounds. absent: Distended, Firm, Guarding, Rigid, Tenderness - Neurological Exam Neurological Exam: Awake (but very lethargic. falls back to sleep quickly.), Oriented x3 - Psychiatric Exam Additional comments: lethargic - Skin Skin Exam: Dry, Warm Assessment and Plan - Assessment and Plan (Free Text) Plan: Malignant Hypertension Resolved Vasotec 10 mg PO daily Amlodipine 5 mg PO daily Beta Barby use is contraindicated due to history of recent cocaine use Nausea/ Vomiting Resolved Zofran 4 mg IVP q6h PRN Started on carbo consistent diet Diabetes RISS Accucheck ACHS AC insulin reduced from 10U to 5U HgbA1C 7.7 Hyperlipidemia lipid panel: 280 TGs, LDL 142, HDL 133 Crestor 10 mg PO HS Cocaine Use Disorder Management as per primary team Alcohol abuse/ Withdrawal Ativan 1mg PO q4h PRN All additional management as per primary team Prophylactic Care Lovenox 40 mg SC daily It is likely that the malignant hypertension is due to withdrawal from cocaine and alcohol. However, since the patient is a known diabetic, she will need to start on an BAYRON inhibitor as an outpatient for the renal protective effects. She will also need outpatient follow up and to repeat a lipid panel fasting at least 15 hours prior to blood work. When the primary team (psychiatry) discharges this patient, she will need to go home on an ACEi and a statin. It is very important that the patient follows up with her primary physician because she has many risk factors for strokes. Patient is stable for discharge from medical team standpoint. She is to continue with her detox treatment as per primary team. Medicine team signing off , please re-consult as needed. Case discussed with Dr. Inga Guzman PGY1 <Hesham Xiong - Last Filed: 09/14/17 17:46> Objective - Vital Signs/Intake and Output Vital Signs (last 24 hours): Temp Pulse Resp BP Pulse Ox 98.9 F 101 H 20 164/93 H 100 09/14/17 15:14 09/14/17 15:14 09/14/17 15:14 09/14/17 15:14 09/14/17 15:14 Intake and Output: 09/14/17 09/14/17 06:59 18:59 Intake Total 420 400 Balance 420 400 - Medications Medications: Current Medications Al Hydrox/Mg Hydrox/Simethicone (Maalox 30 Ml) 30 ml PO Q6H PRN PRN Reason: Indigestion / Heartburn Last Admin: 09/14/17 10:07 Dose: 30 ml Amlodipine Besylate (Norvasc) 10 mg PO DAILY [facility] Last Admin: 09/14/17 10:07 Dose: 10 mg Enalapril Maleate (Vasotec) 10 mg PO DAILY [facility] Last Admin: 09/14/17 10:14 Dose: 10 mg Enoxaparin Sodium (Lovenox) 40 mg SC DAILY [facility] Last Admin: 09/14/17 10:06 Dose: 40 mg Folic Acid (Folic Acid) 1 mg PO DAILY [facility] Last Admin: 09/14/17 10:11 Dose: 1 mg Gabapentin (Neurontin) 300 mg PO TID [facility] Last Admin: 09/14/17 17:14 Dose: 300 mg Insulin Aspart (Novolog) 5 unit SC ACHS [facility] Last Admin: 09/14/17 12:30 Dose: Not Given Insulin Aspart (Novolog) 0 unit SC ACHS [facility] PRN Reason: Protocol Last Admin: 09/14/17 12:43 Dose: Not Given Lorazepam (Ativan) 1 mg PO Q4H PRN PRN Reason: EtOH withdrawal Last Admin: 09/14/17 08:33 Dose: 1 mg Multivitamins (Hexavitamin) 1 tab PO DAILY [facility] Last Admin: 09/14/17 10:07 Dose: 1 tab Nicotine (Nicoderm Cq) 1 patch TD DAILY [facility] Last Admin: 09/14/17 10:11 Dose: 1 patch Ondansetron HCl (Zofran Inj) 4 mg IVP Q6H PRN PRN Reason: Nausea/Vomiting Last Admin: 09/14/17 10:07 Dose: 4 mg Quetiapine Fumarate (Seroquel) 50 mg PO HS [facility] Last Admin: 09/13/17 21:53 Dose: 50 mg Rosuvastatin Calcium (Crestor) 10 mg PO HS [facility] Last Admin: 09/13/17 21:53 Dose: 10 mg Sertraline HCl (Zoloft) 50 mg PO DAILY [facility] Last Admin: 09/14/17 10:07 Dose: 50 mg Thiamine HCl (Vitamin B1 Tab) 100 mg PO DAILY [facility] Last Admin: 09/14/17 10:11 Dose: 100 mg - Labs Labs: 09/14/17 11:28 09/14/17 11:28 Attending/Attestation - Attestation I have personally seen and examined this patient.: Yes I have fully participated in the care of the patient.: Yes I have reviewed all pertinent clinical information, including history, physical exam and plan: Yes Notes (Text): Patient was seen and examined I agree with the documentation of the resident d/w psychiatrist
[2017-09-12 07:05] LABS: ALB/GLOB RATIO 0.9 (1.0-2.1); ALKALINE PHOSPHATASE 93 U/L (38-126); ALT/SGPT 24 U/L (9-52); AST/SGOT 17 U/L (14-36); BILIRUBIN,TOTAL 0.6 mg/dL (0.2-1.3); BLOOD UREA NITROGEN 26 mg/dL (7-17); CALCIUM 9.1 mg/dl (8.6-10.4); CARBON DIOXIDE 31 mmol/L (22-30); CHLORIDE 101 mmol/L (98-107); GFR AFRICAN-AMERICAN > 60; GLUCOSE,RANDOM 242 mg/dL (65-105); MAGNESIUM 1.8 mg/dL (1.6-2.3); PHOSPHOROUS 3.9 mg/dL (2.5-4.5); SODIUM 138 mmol/L (132-148); TOTAL PROTEIN 7.9 g/dL (6.3-8.3)
[2017-09-12] MEDS: (Novolog) Insulin Aspart, Recombinant 100 u/ml 10 ml vial SC SCH ×8 (08:22→22:35)
[2017-09-12] MEDS: Enoxaparin 40 mg Syringe SC SCH (09:18)
[2017-09-12] MEDS: Multiple Vitamins Tab PO SCH (09:19)
[2017-09-12] MEDS: Aluminum Hydroxide/Magnesium Hydroxide Susp (30 mL) PO PRN (17:39)
--- NOTE | 2017-09-12 23:38 | CARD ---
APPROVED REPORT EKG Measurement Heart [id number] <Conclusion> Normal sinus rhythm Possible Left atrial enlargement Left axis deviation Septal infarct, age undetermined Abnormal ECG
[2017-09-13] MEDS: Aluminum Hydroxide/Magnesium Hydroxide Susp (30 mL) PO PRN (06:38)
[2017-09-13 08:00] LABS: BASO % 0.7 % (0.0-2.0); EOS # 0.2 K/uL (0.0-0.7); EOS % 3.1 % (0.0-4.0); HEMATOCRIT 41.9 % (34.0-47.0); LYMPH % 30.9 % (20.0-40.0); MEAN CELL VOLUME 87.1 fL (81.0-99.0); MEAN CORPUSCULAR HEMOGLOBIN 29.2 pg (27.0-31.0); MEAN CORPUSCULAR HGB CONC 33.5 g/dL (33.0-37.0); MEAN PLATELET VOLUME 8.3 fL (7.2-11.7); MONO # 0.8 K/uL (0.0-0.8); MONO % 11.8 % (0.0-10.0); NRBC % 0.1 % (0.0-2.0); RED CELL DISTRIBUTION WIDTH 13.8 % (11.5-14.5); WHITE BLOOD COUNT 6.5 K/uL (4.8-10.8)
[2017-09-13 08:15] LABS: ALB/GLOB RATIO 0.9 (1.0-2.1); ALKALINE PHOSPHATASE 93 U/L (38-126); ALT/SGPT 18 U/L (9-52); AST/SGOT 22 U/L (14-36); BILIRUBIN,TOTAL 0.5 mg/dL (0.2-1.3); BLOOD UREA NITROGEN 28 mg/dL (7-17); CALCIUM 9.3 mg/dl (8.6-10.4); CARBON DIOXIDE 32 mmol/L (22-30); CHLORIDE 96 mmol/L (98-107); GFR AFRICAN-AMERICAN > 60; GLUCOSE,RANDOM 297 mg/dL (65-105); MAGNESIUM 1.9 mg/dL (1.6-2.3); PHOSPHOROUS 4.1 mg/dL (2.5-4.5); POTASSIUM 4.2 mmol/L (3.6-5.2); SODIUM 135 mmol/L (132-148); TOTAL PROTEIN 7.9 g/dL (6.3-8.3)
[2017-09-13] MEDS: (Novolog) Insulin Aspart, Recombinant 100 u/ml 10 ml vial SC SCH ×8 (08:35→21:53)
[2017-09-13] MEDS: Enoxaparin 40 mg Syringe SC SCH (09:37)
[2017-09-13] MEDS: Multiple Vitamins Tab PO SCH (09:39)
--- NOTE | 2017-09-13 12:38 | PCM.PYCHPN ---
Psychiatric Progress Note - Psychiatric Progress Note Patient seen today, length of contact: 16 min Patient Chief Complaint: "I'm fine, I don;t need people to watch me" Problems Identified/Issues Discussed: The pt is seen, chart reviewed and case discussed with the medical team She is not in withdrawal of any kind. She is less sedated She agrees to go to her IOP, [facility] in [place] and says she has a place to stay She is not suicidal or psychotic Psychiatrically she can be discharged. Psych will sign off Medication Change: No Medical Record Reviewed: Yes Mental Status Examination - Cognitive Function Orientation: Person, Place, Situation, Time Memory: Intact Attention: Poor Concentration: Poor Association: WNL Fund of Knowledge: Poor - Mood Mood: Anxious - Affect Affect: Constricted, Depressed - Speech Speech: Appropriate - Formal Thought Process Formal Thought Process: No Impairment, Loosening of associations - Suicidal Ideation Suicidal Ideation: No - Homicidal Ideation Homicidal Ideation: No Goal/Treatment Plan - Goal/Treatment Plan Progress Toward Problem(s) and Goals/Treatment Plan: Psychiatrically cleared Continue psych meds Gabapentin can be added for anxiety Return to home and [facility]
--- NOTE | 2017-09-13 13:24 | CP.PCM.PN ---
<Melo Guzman - Last Filed: 09/13/17 14:41> Subjective - Date & Time of Evaluation Date of Evaluation: 09/13/17 Time of Evaluation: 13:08 - Subjective Subjective: PGY1 Medicine Note for Dr. Xiong Patient seen and examined this morning. Patient stated she experienced some chest pain this morning. The pain has decreased since this morning but she is still currently experiencing some chest pain at this time. This chest pain is worse if someone presses on her her chest. Deep breathing does not have any affect on the chest pain. The patient was extremely anxious early this morning and the nurse had given her an ativan. Patient is currently extremely tired and does not want to wake up for the examination. Objective - Vital Signs/Intake and Output Vital Signs (last 24 hours): Temp Pulse Resp BP Pulse Ox 98.4 F 102 H 20 170/89 H 97 09/13/17 07:15 09/13/17 08:00 09/13/17 07:15 09/13/17 09:38 09/13/17 07:15 Intake and Output: 09/13/17 09/13/17 06:59 18:59 Intake Total 110 Output Total 1 Balance 109 - Medications Medications: Current Medications Al Hydrox/Mg Hydrox/Simethicone (Maalox 30 Ml) 30 ml PO Q6H PRN PRN Reason: Indigestion / Heartburn Last Admin: 09/13/17 06:38 Dose: 30 ml Amlodipine Besylate (Norvasc) 10 mg PO DAILY [facility] Enalapril Maleate (Vasotec) 10 mg PO DAILY [facility] Last Admin: 09/13/17 09:38 Dose: 10 mg Enoxaparin Sodium (Lovenox) 40 mg SC DAILY [facility] Last Admin: 09/13/17 09:37 Dose: 40 mg Folic Acid (Folic Acid) 1 mg PO DAILY [facility] Last Admin: 09/13/17 09:38 Dose: 1 mg Gabapentin (Neurontin) 300 mg PO TID [facility] Insulin Aspart (Novolog) 5 unit SC ACHS [facility] Last Admin: 09/13/17 08:35 Dose: 5 unit Insulin Aspart (Novolog) 0 unit SC ACHS [facility] PRN Reason: Protocol Last Admin: 09/13/17 08:35 Dose: 6 unit Lorazepam (Ativan) 1 mg PO Q4H PRN PRN Reason: EtOH withdrawal Last Admin: 12/21/17 11:38 Dose: 1 mg Multivitamins (Hexavitamin) 1 tab PO DAILY [facility] Last Admin: 09/13/17 09:39 Dose: 1 tab Nicotine (Nicoderm Cq) 1 patch TD DAILY [facility] Ondansetron HCl (Zofran Inj) 4 mg IVP Q6H PRN PRN Reason: Nausea/Vomiting Last Admin: 09/13/17 09:39 Dose: 4 mg Quetiapine Fumarate (Seroquel) 50 mg PO HS [facility] Last Admin: 09/12/17 22:08 Dose: 50 mg Rosuvastatin Calcium (Crestor) 10 mg PO HS [facility] Last Admin: 09/12/17 22:08 Dose: 10 mg Sertraline HCl (Zoloft) 50 mg PO DAILY [facility] Last Admin: 09/13/17 09:39 Dose: 50 mg Thiamine HCl (Vitamin B1 Tab) 100 mg PO DAILY [facility] Last Admin: 09/12/17 09:19 Dose: 100 mg - Labs Labs: 09/13/17 07:47 09/13/17 07:47 - Constitutional Appears: Non-toxic, No Acute Distress - Head Exam Head Exam: ATRAUMATIC, NORMOCEPHALIC - Eye Exam Eye Exam: EOMI - ENT Exam ENT Exam: Mucous Membranes Moist - Neck Exam Neck Exam: Full ROM - Respiratory Exam Respiratory Exam: Clear to Ausculation Bilateral, NORMAL BREATHING PATTERN. absent: Accessory Muscle Use, Rales, Rhonchi, Wheezes, Respiratory Distress - Cardiovascular Exam Cardiovascular Exam: REGULAR RHYTHM, +S1 Additional comments: Left sided, reproducible chest pain with palpation. - GI/Abdominal Exam GI & Abdominal Exam: Soft, Normal Bowel Sounds. absent: Distended, Firm, Guarding, Rigid, Tenderness - Extremities Exam Extremities Exam: Normal Inspection. absent: Calf Tenderness, Pedal Edema - Neurological Exam Neurological Exam: Alert (sleeping, recently given ativan but easily arousible. Patient did not want to fully awake for exam.), Oriented x3 - Psychiatric Exam Additional comments: recently given ativan, very tired. - Skin Skin Exam: Dry, Warm Assessment and Plan - Assessment and Plan (Free Text) Plan: Chest Pain Reproducible - not believed to be cardiac in nature Trop negative x2; f/u trop at 9p No EKG changes x2, currently on telemetry, f/u third EKG Malignant Hypertension Resolved Vasotec 10 mg PO daily Amlodipine 5 mg PO daily Beta Barby use is contraindicated due to history of recent cocaine use Nausea/ Vomiting Resolved Zofran 4 mg IVP q6h PRN Started on carbo consistent diet Diabetes RISS Accucheck ACHS AC insulin reduced from 10U to 5U HgbA1C 7.7 Hyperlipidemia lipid panel: 280 TGs, LDL 142, HDL 133 Crestor 10 mg PO HS Cocaine Use Disorder Management as per primary team Alcohol abuse/ Withdrawal Ativan 1mg PO q4h PRN All additional management as per primary team Prophylactic Care Lovenox 40 mg SC daily It is likely that the malignant hypertension is due to withdrawal from cocaine and alcohol. However, since the patient is a known diabetic, she will need to start on an BAYRON inhibitor as an outpatient for the renal protective effects. She will also need outpatient follow up and to repeat a lipid panel fasting at least 15 hours prior to blood work. When the primary team (psychiatry) discharges this patient, she will need to go home on an ACEi and a statin. It is very important that the patient follows up with her primary physician because she has many risk factors for strokes. Patient has be cleared for discharge by psych. If troponins and ekg are negative x3 and no acute events overnight, will plan for discharge tomorrow morning. Case discussed with Dr. Inga Guzman PGY1 <Hesham Xiong - Last Filed: 09/14/17 17:50> Objective - Vital Signs/Intake and Output Vital Signs (last 24 hours): Temp Pulse Resp BP Pulse Ox 98.9 F 101 H 20 164/93 H 100 09/14/17 15:14 09/14/17 15:14 09/14/17 15:14 09/14/17 15:14 09/14/17 15:14 Intake and Output: 09/14/17 09/14/17 06:59 18:59 Intake Total 420 400 Balance 420 400 - Medications Medications: Current Medications Al Hydrox/Mg Hydrox/Simethicone (Maalox 30 Ml) 30 ml PO Q6H PRN PRN Reason: Indigestion / Heartburn Last Admin: 09/14/17 10:07 Dose: 30 ml Amlodipine Besylate (Norvasc) 10 mg PO DAILY [facility] Last Admin: 09/14/17 10:07 Dose: 10 mg Enalapril Maleate (Vasotec) 10 mg PO DAILY [facility] Last Admin: 09/14/17 10:14 Dose: 10 mg Enoxaparin Sodium (Lovenox) 40 mg SC DAILY [facility] Last Admin: 09/14/17 10:06 Dose: 40 mg Folic Acid (Folic Acid) 1 mg PO DAILY [facility] Last Admin: 09/14/17 10:11 Dose: 1 mg Gabapentin (Neurontin) 300 mg PO TID [facility] Last Admin: 09/14/17 17:14 Dose: 300 mg Insulin Aspart (Novolog) 5 unit SC ACHS [facility] Last Admin: 09/14/17 12:30 Dose: Not Given Insulin Aspart (Novolog) 0 unit SC ACHS [facility] PRN Reason: Protocol Last Admin: 09/14/17 12:43 Dose: Not Given Lorazepam (Ativan) 1 mg PO Q4H PRN PRN Reason: EtOH withdrawal Last Admin: 09/14/17 08:33 Dose: 1 mg Multivitamins (Hexavitamin) 1 tab PO DAILY [facility] Last Admin: 09/14/17 10:07 Dose: 1 tab Nicotine (Nicoderm Cq) 1 patch TD DAILY [facility] Last Admin: 09/14/17 10:11 Dose: 1 patch Ondansetron HCl (Zofran Inj) 4 mg IVP Q6H PRN PRN Reason: Nausea/Vomiting Last Admin: 09/14/17 10:07 Dose: 4 mg Quetiapine Fumarate (Seroquel) 50 mg PO HS [facility] Last Admin: 09/13/17 21:53 Dose: 50 mg Rosuvastatin Calcium (Crestor) 10 mg PO HS [facility] Last Admin: 09/13/17 21:53 Dose: 10 mg Sertraline HCl (Zoloft) 50 mg PO DAILY [facility] Last Admin: 09/14/17 10:07 Dose: 50 mg Thiamine HCl (Vitamin B1 Tab) 100 mg PO DAILY [facility] Last Admin: 09/14/17 10:11 Dose: 100 mg - Labs Labs: 09/14/17 11:28 09/14/17 11:28 Attending/Attestation - Attestation I have personally seen and examined this patient.: Yes I have fully participated in the care of the patient.: Yes I have reviewed all pertinent clinical information, including history, physical exam and plan: Yes Notes (Text): Patient was sleeping comfortable.No distress noted,she was complaining of chest pain.Troponin and EKG done patient was exaplained to control her diabetes/sugar and blood pressure.Antihypertensives added.BP better controlled I agree with the documentation of the assessment and the plan of the patient
[2017-09-14] MEDS: (Novolog) Insulin Aspart, Recombinant 100 u/ml 10 ml vial SC SCH ×5 (08:30→12:43)
[2017-09-14] MEDS: Enoxaparin 40 mg Syringe SC SCH (10:06)
[2017-09-14] MEDS: Multiple Vitamins Tab PO SCH (10:07)
[2017-09-14] MEDS: Aluminum Hydroxide/Magnesium Hydroxide Susp (30 mL) PO PRN (10:07)
[2017-09-14 11:35] LABS: BASO % 0.4 % (0.0-2.0); EOS # 0.2 K/uL (0.0-0.7); EOS % 2.7 % (0.0-4.0); HEMATOCRIT 41.8 % (34.0-47.0); LYMPH # 1.6 K/uL (1.0-4.3); LYMPH % 27.8 % (20.0-40.0); MEAN CELL VOLUME 86.9 fL (81.0-99.0); MEAN CORPUSCULAR HEMOGLOBIN 28.9 pg (27.0-31.0); MEAN CORPUSCULAR HGB CONC 33.3 g/dL (33.0-37.0); MEAN PLATELET VOLUME 8.8 fL (7.2-11.7); MONO # 0.5 K/uL (0.0-0.8); MONO % 7.7 % (0.0-10.0); NRBC % 0.1 % (0.0-2.0); RED CELL DISTRIBUTION WIDTH 13.6 % (11.5-14.5); WHITE BLOOD COUNT 5.9 K/uL (4.8-10.8)
[2017-09-14 11:51] LABS: ALB/GLOB RATIO 0.9 (1.0-2.1); ALKALINE PHOSPHATASE 89 U/L (38-126); ALT/SGPT 23 U/L (9-52); AST/SGOT 23 U/L (14-36); BILIRUBIN,TOTAL 0.4 mg/dL (0.2-1.3); BLOOD UREA NITROGEN 30 mg/dL (7-17); CALCIUM 9.3 mg/dl (8.6-10.4); CARBON DIOXIDE 37 mmol/L (22-30); CHLORIDE 95 mmol/L (98-107); GFR AFRICAN-AMERICAN > 60; GLUCOSE,RANDOM 155 mg/dL (65-105); MAGNESIUM 1.9 mg/dL (1.6-2.3); PHOSPHOROUS 3.9 mg/dL (2.5-4.5); POTASSIUM 3.7 mmol/L (3.6-5.2); SODIUM 137 mmol/L (132-148); TOTAL PROTEIN 8.2 g/dL (6.3-8.3)
--- NOTE | 2017-09-14 14:17 | CP.PCM.DIS ---
Provider - Provider Date of Admission: 09/07/17 17:47 Attending physician: Hesham Xiong MD Consults: Psych: Dr. Lugo Time Spent in preparation of Discharge (in minutes): 30 Hospital Course - Lab Results Lab Results: Most Recent Lab Values WBC 5.9 K/uL (4.8-10.8) 09/14/17 11:28 RBC 4.81 Mil/uL (3.80-5.20) 09/14/17 11:28 Hgb 13.9 g/dL (11.0-16.0) 09/14/17 11:28 Hct 41.8 % (34.0-47.0) 09/14/17 11:28 MCV 86.9 fL (81.0-99.0) 09/14/17 11:28 MCH 28.9 pg (27.0-31.0) 09/14/17 11:28 MCHC 33.3 g/dL (33.0-37.0) 09/14/17 11:28 RDW 13.6 % (11.5-14.5) 09/14/17 11:28 Plt Count 264 K/uL (130-400) 09/14/17 11:28 MPV 8.8 fL (7.2-11.7) 09/14/17 11:28 Neut % (Auto) 61.4 % (50.0-75.0) 09/14/17 11:28 Lymph % (Auto) 27.8 % (20.0-40.0) 09/14/17 11:28 [place] % (Auto) 7.7 % (0.0-10.0) 09/14/17 11:28 Eos % (Auto) 2.7 % (0.0-4.0) 09/14/17 11:28 Baso % (Auto) 0.4 % (0.0-2.0) 09/14/17 11:28 Neut # 3.6 K/uL (1.8-7.0) 09/14/17 11:28 Lymph # 1.6 K/uL (1.0-4.3) 09/14/17 11:28 [place] # 0.5 K/uL (0.0-0.8) 09/14/17 11:28 Eos # 0.2 K/uL (0.0-0.7) 09/14/17 11:28 Baso # 0.0 K/uL (0.0-0.2) 09/14/17 11:28 Sodium 137 mmol/L (132-148) 09/14/17 11:28 Potassium 3.7 mmol/L (3.6-5.2) 09/14/17 11:28 Chloride 95 mmol/L (98-107) L 09/14/17 11:28 Carbon Dioxide 37 mmol/L (22-30) H 09/14/17 11:28 Anion Gap 10 (10-20) 09/14/17 11:28 BUN 30 mg/dL (7-17) H 09/14/17 11:28 Creatinine 0.9 mg/dL (0.7-1.2) 09/14/17 11:28 Est GFR ( Amer) > 60 09/14/17 11:28 Est GFR (Non-Af Amer) > 60 09/14/17 11:28 POC Glucose (mg/dL) 130 mg/dL (65-110) H 09/14/17 11:40 Random Glucose 155 mg/dL (65-105) H 09/14/17 11:28 Hemoglobin A1c 7.7 % (4.2-6.5) H D 09/10/17 06:46 Calcium 9.3 mg/dl (8.6-10.4) 09/14/17 11:28 Phosphorus 3.9 mg/dL (2.5-4.5) 09/14/17 11:28 Magnesium 1.9 mg/dL (1.6-2.3) 09/14/17 11:28 Total Bilirubin 0.4 mg/dL (0.2-1.3) 09/14/17 11:28 AST 23 U/L (14-36) 09/14/17 11:28 ALT 23 U/L (9-52) 09/14/17 11:28 Alkaline Phosphatase 89 U/L (38-126) 09/14/17 11:28 Total Creatine Kinase 41 U/L (30-135) 09/13/17 08:56 CK-MB (Mass) 1.14 ng/mL (0.0-3.38) 09/13/17 08:56 Troponin I < 0.0120 ng/mL (0.00-0.120) 09/13/17 22:18 Total Protein 8.2 g/dL (6.3-8.3) 09/14/17 11:28 Albumin 4.0 g/dL (3.5-5.0) 09/14/17 11:28 Globulin 4.2 gm/dL (2.2-3.9) H 09/14/17 11:28 Albumin/Globulin Ratio 0.9 (1.0-2.1) L 09/14/17 11:28 Triglycerides 86 mg/dL (0-149) D 09/10/17 06:46 Cholesterol 280 mg/dL (0-199) H 09/10/17 06:46 LDL Cholesterol Direct 142 mg/dL (0-129) H 09/10/17 06:46 HDL Cholesterol 133 mg/dL (30-70) H 09/10/17 06:46 TSH 3rd Generation 0.20 mIU/L (0.46-4.68) L 09/10/17 06:46 Urine Color Yellow (YELLOW) 09/07/17 16:32 Urine Clarity Hazy (Clear) 09/07/17 16:32 Urine pH 5.0 (5.0-8.0) 09/07/17 16:32 Ur Specific [place] 1.021 (1.003-1.030) 09/07/17 16:32 Urine Protein 2+ mg/dL (NEGATIVE) H 09/07/17 16:32 Urine Glucose (UA) 1+ mg/dL (Normal) 09/07/17 16:32 Urine Ketones Negative mg/dL (NEGATIVE) 09/07/17 16:32 Urine Blood 2+ (NEGATIVE) H 09/07/17 16:32 Urine Nitrate Negative (NEGATIVE) 09/07/17 16:32 Urine Bilirubin Negative (NEGATIVE) 09/07/17 16:32 Urine Urobilinogen Normal mg/dL (0.2-1.0) 09/07/17 16:32 Ur Leukocyte Esterase Trace Nancie/uL (Negative) 09/07/17 16:32 Urine WBC (Auto) 4 /hpf (0-5) 09/07/17 16:32 Urine RBC (Auto) 4 /hpf (0-3) H 09/07/17 16:32 Ur Squamous Epith Cells 11 /hpf (0-5) H 09/07/17 16:32 Urine Bacteria Rare (<OCC) 09/07/17 16:32 Hyaline Casts 3-5 /lpf (0-2) H 09/07/17 16:32 Urine Opiates Screen Negative (NEGATIVE) 09/13/17 09:10 Urine Methadone Screen Negative (NEGATIVE) 09/13/17 09:10 Ur Barbiturates Screen Negative (NEGATIVE) 09/13/17 09:10 Ur Phencyclidine Scrn Negative (NEGATIVE) 09/13/17 09:10 Ur Amphetamines Screen Negative (NEGATIVE) 09/13/17 09:10 U Benzodiazepines Scrn Positive (NEGATIVE) 09/13/17 09:10 U Oth Cocaine Metabols Positive (NEGATIVE) H 09/13/17 09:10 U Cannabinoids Screen Positive (NEGATIVE) H 09/13/17 09:10 Alcohol, Quantitative < 10 mg/dl (0-10) 09/07/17 16:38 Discharge Exam - Head Exam Head Exam: ATRAUMATIC, NORMOCEPHALIC Discharge Plan - Discharge Medications Prescriptions: amLODIPine [Norvasc] 10 mg PO DAILY #30 tab Enalapril Maleate [Vasotec] 10 mg PO DAILY #30 tab - Follow Up Plan Condition: STABLE Disposition: HOME/ ROUTINE Additional Instructions: Patient is to be discharged home per Dr. Xiong. Patient is to follow up with her primary care physician within one week of being discharged. If the patient does not have primary care physician, please follow up with the [facility] located in the [facility]. Patient is to follow up with her Intensive Outpatient [facility] in [place]. If patient has any new or worsening symptoms, please go to the nearest emergency room. Prescriptions Given: Amlodipine 10mg PO daily Enalapril Maleate 10mg PO daily Referrals: [facility] [Outside]
[2017-09-14 16:00] VITALS: RESP 20
[2017-09-14 16:02] VITALS: BP 164/93; TEMP 98.9; O2SAT 100
[2017-09-15 00:58] VITALS: PULSE 110
== END 2017-09-14 18:50 | disposition home or self-care (01) | DRG 897 ==
LOC: C.ER 15:08 → C.7D 17:47 → C.6T 09-09 17:33
PROVIDERS: ADMIT Internal Medicine; ATTEND Internal Medicine
DX: F10.239 Alcohol dependence with withdrawal, unspecified (principal); F14.23 Cocaine dependence with withdrawal; F33.3 Major depressive disorder, recurrent, severe with psychotic symptoms; E11.40 Type 2 diabetes mellitus with diabetic neuropathy, unspecified; F43.12 Post-traumatic stress disorder, chronic; I10 Essential (primary) hypertension; J45.909 Unspecified asthma, uncomplicated

== ENCOUNTER 2017-09-21 15:35 | Inpatient (IN) | payer MEDICARE ==
[2017-09-21] MEDS ORDERED: Sodium Chloride 0.9% 1,000 ML IV ONE (16:21)
[2017-09-21 16:37] LABS: SQUAMOUS EPITHIAL 6 /hpf (0-5); URINE BACTERIA FEW (<OCC); URINE BILIRUBIN NEGATIVE (NEGATIVE); URINE CLARITY Hazy (Clear); URINE COLOR Yellow (YELLOW); URINE GLUCOSE (UA) 3+ mg/dL (Normal); URINE NITRATE NEGATIVE (NEGATIVE); URINE PROTEIN 2+ mg/dL (NEGATIVE); URINE UROBILINOGEN NORMAL mg/dL (0.2-1.0)
[2017-09-21 16:41] LABS: URINE BLOOD 1+ (NEGATIVE); URINE LEUKOCYTE ESTERASE 1+ Leu/uL (Negative)
[2017-09-21 16:54] LABS: BASO # 0.2 K/uL (0.0-0.2); BASO % 2.5 % (0.0-2.0); EOS # 0.1 K/uL (0.0-0.7); HEMOGLOBIN 13.4 g/dL (11.0-16.0); LYMPH # 1.5 K/uL (1.0-4.3); LYMPH % 17.2 % (20.0-40.0); MEAN CELL VOLUME 85.3 fL (81.0-99.0); MEAN CORPUSCULAR HEMOGLOBIN 28.3 pg (27.0-31.0); MEAN CORPUSCULAR HGB CONC 33.1 g/dL (33.0-37.0); MEAN PLATELET VOLUME 8.7 fL (7.2-11.7); MONO # 0.6 K/uL (0.0-0.8); MONO % 6.5 % (0.0-10.0); NEUT # 6.5 K/uL (1.8-7.0); NEUT % 72.8 % (50.0-75.0); RBC 4.73 Mil/uL (3.80-5.20); RED CELL DISTRIBUTION WIDTH 13.8 % (11.5-14.5); WHITE BLOOD COUNT 8.9 K/uL (4.8-10.8)
[2017-09-21 16:55] LABS: BARBITURATES, UR NEGATIVE (NEGATIVE); BENZODIAZEPINES, UR POSITIVE (NEGATIVE); OPIATES, UR NEGATIVE (NEGATIVE); PHENCYCLIDINE, UR NEGATIVE (NEGATIVE)
[2017-09-21 17:17] LABS: ALB/GLOB RATIO 1.1 (1.0-2.1); ALBUMIN 3.9 g/dL (3.5-5.0); ALT/SGPT 26 U/L (9-52); AST/SGOT 30 U/L (14-36); BLOOD UREA NITROGEN 17 mg/dL (7-17); CALCIUM 8.9 mg/dl (8.6-10.4); GFR AFRICAN-AMERICAN > 60; GFR NON-AFRICAN AMERICAN 53
--- NOTE | 2017-09-21 18:01 | C.PDOC ---
History Of Present Illness <Raysa Bae - Last Filed: 09/21/17 18:51> <Marissa Schneider - Last Filed: 09/21/17 19:28> 47 year old female presents to ED requesting detox from cocaine and alcohol. Pt was recently admitted for detox, but had to be transferred due to a medical floor uncontrolled blood pressure. Pt states she did not finish detox previously and is requesting to finish detox at this time. Last use was yesterday. Pt admits to nausea, and vomiting. Denies abdominal pain, diarrhea, urinary symptoms, or fever. Contrary to triage pt denies any chest pain, SOB, dizziness, fever or abdominal pain. Pt states she was compliant with her BP medication today. Notes taking 3 units of Novalog today. Pt is also requesting nicotine patch. (Raysa Bae) History Per: Patient History/Exam Limitations: no limitations Onset/Duration Of Symptoms: Days Current Symptoms Are (Timing): Still Present Suicide/Self Injury Attempted (Context): None Severity: None Pain Scale Rating Of: 0 Associated Symptoms: denies: Suicidal Thoughts, Suicidal Plan Involuntary Hold By: None Recent travel outside of the [place]: No Additional History Per: Patient <MauriceRaysa anderson - Last Filed: 09/21/17 18:51> <Marissa Schneider - Last Filed: 09/21/17 19:28> Time Seen by Provider: 09/21/17 15:45 Chief Complaint (Nursing): Psychiatric Evaluation Past Medical History Reviewed: Historical Data, Nursing Documentation, Vital Signs - Medical History PMH: Anxiety, Asthma, Depression, Diabetes, HTN Denies: Hepatitis, HIV, Chronic Kidney Disease, Seizures, Sexually Transmitted Disease Surgical History: Family History: States: Unknown Family Hx - Social History Hx Tobacco Use: Yes Hx Alcohol Use: Yes Hx Substance Use: Yes - Immunization History Hx Tetanus Toxoid Vaccination: No Hx Influenza Vaccination: No Hx Pneumococcal Vaccination: No <Raysa Bae - Last Filed: 09/21/17 18:51> Vital Signs: Last Vital Signs Temp 99.1 F 09/21/17 18:26 Pulse 92 H 09/21/17 18:26 Resp 18 09/21/17 18:26 BP 103/60 09/21/17 18:26 Pulse Ox 98 09/21/17 18:57 - [facility] Procedures DETOXIFICATION SERVICES FOR SUBSTANCE ABUSE TREATMENT (07/01/15) Review Of Systems Except As Marked, All Systems Reviewed And Found Negative. Constitutional: Negative for: Fever, Chills Cardiovascular: Negative for: Chest Pain, Palpitations, Light Headedness Respiratory: Negative for: Cough, Shortness of Breath Gastrointestinal: Positive for: Nausea, Vomiting. Negative for: Abdominal Pain , Diarrhea, Constipation Genitourinary: Negative for: Dysuria, Frequency, Hematuria Musculoskeletal: Negative for: Back Pain Neurological: Negative for: Headache, Dizziness <Raysa Bae - Last Filed: 09/21/17 18:51> Physical Exam - Physical Exam Appears: Non-toxic, No Acute Distress Skin: Normal Color, Warm, Dry Head: Atraumatic, Normacephalic Eye(s): bilateral: Normal Inspection, EOMI Nose: Normal Oral Mucosa: Moist Neck: Normal ROM, Supple Chest: Symmetrical Cardiovascular: Rhythm Regular Respiratory: Normal Breath Sounds, No Rales, No Rhonchi, No Wheezing Gastrointestinal/Abdominal: Soft, No Tenderness Extremity: Normal ROM Neurological/Psych: Oriented x3, Normal Speech <Raysa Bae - Last Filed: 09/21/17 18:51> ED Course And Treatment - Laboratory Results Result Diagrams: 09/21/17 16:50 09/21/17 18:24 O2 Sat by Pulse Oximetry: 98 (RA) Pulse Ox Interpretation: Normal Progress Note: Blood work, UA ordered and reviewed. Pt was given Nicotine patch , Zofran, Librium, and IV fluids. On re-eval, patient is resting comfortably, and is in no acute distress. <Raysa Bae - Last Filed: 09/21/17 18:51> - Laboratory Results Result Diagrams: 09/21/17 16:50 09/21/17 18:24 <Marissa Schneider - Last Filed: 09/21/17 19:28> Disposition - Disposition Disposition Time: 18:56 <Raysa Bae - Last Filed: 09/21/17 18:51> <Marissa Schneider - Last Filed: 09/21/17 19:28> - Disposition Condition: STABLE Forms: [facility] [employer] (Divehi) - Clinical Impression Clinical Impression: Drug abuse, cocaine type, Alcohol abuse, Diabetes - PA / CURER ACID DRUM / Resident Statement MD/DO has reviewed & agrees with the documentation as recorded. - Scribe Statement The provider has reviewed the documentation as recorded by the Scribe <Raysa Bae - Last Filed: 09/21/17 18:51> <Marissa Schneider - Last Filed: 09/21/17 19:28> - Scribe Statement Marianna Gonzales All medical record entries made by the Scribe were at my direction and personally dictated by me. I have reviewed the chart and agree that the record accurately reflects my personal performance of the history, physical exam, medical decision making, and the department course for this patient. I have also personally directed, reviewed, and agree with the discharge instructions and disposition. (Raysa Bae) Physician Patient Turnover Patient Signed Over To: Marissa Schneider Handoff Comments: Pending social problems specialist evaluation, and admission. <Raysa Bae - Last Filed: 09/21/17 18:51> Addendum <Raysa Bae - Last Filed: 09/21/17 18:51> <Marissa Schneider - Last Filed: 09/21/17 19:28> Addendum: 09/21/17 19:[address] Cartagena, requests patient be given insulin and accucheck done prior to going to detox unit. 5 units SC ordered, will do accucheck in 45-60 min. (Marissa Schneider)
[2017-09-21 18:44] LABS: ALB/GLOB RATIO 1.2 (1.0-2.1); ALBUMIN 3.8 g/dL (3.5-5.0); ALT/SGPT 25 U/L (9-52); AST/SGOT 20 U/L (14-36); BLOOD UREA NITROGEN 16 mg/dL (7-17); CALCIUM 8.5 mg/dl (8.6-10.4); GFR AFRICAN-AMERICAN > 60; GFR NON-AFRICAN AMERICAN 53
[2017-09-21] MEDS ORDERED: Sodium Chloride 0.9% 500 ML IV ONE (18:48)
[2017-09-21] MEDS ORDERED: (Novolin R) Insulin Human Regular 100 units/ml vial SC STA (19:27)
[2017-09-21] MEDS ORDERED: (Novolin R) Insulin Human Regular 100 units/ml vial ONE (19:31)
--- NOTE | 2017-09-21 22:48 | PCM.BM ---
Treatment Plan Problems - Problems identified on initial assessmt potiential for autonomic instability related to alcohol withdrawal Date Initiated: 09/21/17 Time Initiated: 22:47 Assessment reference: NA Status: Active Treatment assets and liabiliti Patient Assests: ADL independent, cognitively intact Patient Liabilities: substance abuse, medical problems - Milieu Protocol Maintain good personal hygiene: daily Encourage regular showers, daily Remind patient to perform daily oral care, daily Assist patient to perform ADL's Maintain personal safety: every shift Educate patient to report safety concerns to staff, every shift Monitor environment for contraband/sharps Medication safety: Monitor for expected outcome, potential side effects: every shift, Assess barriers to learning: every shift, Assess readiness for medication education: every shift
--- NOTE | 2017-09-22 04:38 | CP.PCM.CON ---
<Deepak Vines - Last Filed: 09/22/17 05:38> History of Present Illness - History of Present Illness History of Present Illness: Medicine Consult Note- Hospitalist Service Mrs Sanchez is a 47 year old female with a past medical history of anxiety, asthma, depression, diabetes, HTN, that is being seen by medicine due to her diabetes and history of uncontrolled blood pressure. She was recently admitted on 09/07/17 to detox for cocaine and alcohol, however she was transferred to the medical floor on 09/09/17 due to a systolic blood pressure of over 200. The patient states she did not finish detox previously and is requesting to finish detox at this time. Her last use of cocaine and alcohol was yesterday. Patient states she has been compliant with all her medications since discharge and that she took her BP medications yesterday (amlodipine and enalapril), however psych nurse states that patient told her that she never filled out her discharge prescriptions. She also states she took 3 units of Novolog yesterday. Today she complains of nausea, vomiting and chest pain. The chest pain is mid-sternum, reproducible up palpation. Patient denies abdominal pain, diarrhea, urinary symptoms, chest pain, SOB, dizziness, or abdominal pain. PMD: Dr Perez PMHx: Anxiety, Depression, alcohol abuse, cocaine abuse, DM, hypertension, asthma Surgical Hx: Family Hx: Denies Allergy: Denies Social: 1 pack/day for 30 yrs; 3-4 cans of beer daily and a pint of vodka; crack cocaine use (smoke); occasional marijuana use (joints) Review of Systems - Constitutional Constitutional: absent: Chills, Fever - EENT Eyes: absent: Change in Vision - Cardiovascular Cardiovascular: absent: Chest Pain - Respiratory Respiratory: absent: Cough, Wheezing - Gastrointestinal Gastrointestinal: Nausea, Vomiting. absent: Abdominal Pain - Genitourinary Genitourinary: absent: Dysuria - Neurological Neurological: absent: Dizziness - Psychiatric Psychiatric: absent: Homicidal Ideation, Suicidal Ideation Past Patient History - Infectious Disease Hx of Infectious Diseases: None - Tetanus Immunizations Tetanus Immunization: Unknown - Past Medical History & Family History Past Medical History?: Yes - Past Social History Smoking Status: Heavy Smoker > 10 Cigarettes Daily - CARDIAC Hx Cardiac Disorders: No Hx Hypertension: Yes - PULMONARY Hx Tuberculosis: No - NEUROLOGICAL HX Cerebrovascular Accident: No Hx Seizures: No - HEENT Hx HEENT Problems: No - RENAL Hx Chronic Kidney Disease: No - ENDOCRINE/METABOLIC Hx Endocrine Disorders: Yes Hx Diabetes Mellitus Type 2: Yes - HEMATOLOGICAL/ONCOLOGICAL Hx Cancer: No Hx Human Immunodeficiency Virus (HIV): No - INTEGUMENTARY Hx Dermatological Problems: No - MUSCULOSKELETAL/RHEUMATOLOGICAL Hx Falls: No Other/Comment: 'Torn Ligaments' - GASTROINTESTINAL Hx Gastrointestinal Disorders: Yes Other/Comment: Prior admission for H.pylori - GENITOURINARY/GYNECOLOGICAL Hx Sexually Transmitted Disorders: No - PSYCHIATRIC Hx Anxiety: Yes Hx Depression: Yes Hx Substance Use: Yes - SURGICAL HISTORY Hx Surgeries: Yes Hx Section: Yes Hx Tubal Ligation: Yes - ANESTHESIA Hx Anesthesia: Yes Hx Anesthesia Reactions: No Meds Allergies/Adverse Reactions: Allergies Allergy/AdvReac Type Severity Reaction Status Date / Time No Known Allergies Allergy Verified 09/21/17 15:51 - Medications Medications: Current Medications Chlordiazepoxide (Librium) 25 mg PO Q6H [facility] PRN Reason: Taper Stop: 09/25/17 23:59 Last Admin: 09/21/17 23:41 Dose: 25 mg Folic Acid (Folic Acid) 1 mg PO DAILY [facility] Multivitamins (Hexavitamin) 1 tab PO DAILY [facility] Thiamine HCl (Vitamin B1 Tab) 100 mg PO DAILY [facility] Trazodone HCl (Desyrel) 50 mg PO HS PRN PRN Reason: Insomnia Physical Exam - Constitutional Appears: Non-toxic, No Acute Distress - Head Exam Head Exam: ATRAUMATIC, NORMAL INSPECTION - Eye Exam Eye Exam: EOMI - ENT Exam ENT Exam: Mucous Membranes Moist - Neck Exam Neck exam: Positive for: Normal Inspection. Negative for: Tenderness - Respiratory Exam Respiratory Exam: Clear to Auscultation Bilateral, NORMAL BREATHING PATTERN. absent: Rales, Rhonchi, Wheezes - Cardiovascular Exam Cardiovascular Exam: REGULAR RHYTHM, +S1, +S2. absent: Tachycardia, Systolic Murmur - GI/Abdominal Exam GI & Abdominal Exam: Normal Bowel Sounds, Soft. absent: Tenderness - Extremities Exam Extremities exam: Positive for: full ROM, normal inspection. Negative for: pedal edema - Neurological Exam Neurological exam: Alert, Oriented x3 - Skin Skin Exam: Intact, Normal Color, Warm Results - Vital Signs Recent Vital Signs: Last Vital Signs Temp 99.1 F 09/21/17 23:15 Pulse 82 09/21/17 23:15 Resp 18 09/21/17 23:15 BP 150/108 H 09/21/17 23:15 Pulse Ox 99 09/21/17 23:15 - Labs Result Diagrams: 09/21/17 16:50 09/21/17 18:24 Labs: Laboratory Results - last 24 hr 09/21/17 09/21/17 09/21/17 16:28 16:28 16:50 WBC 8.9 D RBC 4.73 Hgb 13.4 Hct 40.3 MCV 85.3 MCH 28.3 MCHC 33.1 RDW 13.8 Plt Count 303 MPV 8.7 Neut % (Auto) 72.8 Lymph % (Auto) 17.2 L [place] % (Auto) 6.5 Eos % (Auto) 1.0 Baso % (Auto) 2.5 H Neut # 6.5 Lymph # 1.5 [place] # 0.6 Eos # 0.1 Baso # 0.2 Sodium Potassium Chloride Carbon Dioxide Anion Gap BUN Creatinine Est GFR ( Amer) Est GFR (Non-Af Amer) POC Glucose (mg/dL) Random Glucose Calcium Total Bilirubin AST ALT Alkaline Phosphatase Total Protein Albumin Globulin Albumin/Globulin Ratio Urine Color Yellow Urine Clarity Hazy Urine pH 5.0 Ur Specific [place] 1.026 Urine Protein 2+ H Urine Glucose (UA) 3+ H Urine Ketones Trace Urine Blood 1+ H Urine Nitrate Negative Urine Bilirubin Negative Urine Urobilinogen Normal Ur Leukocyte Esterase 1+ H Urine WBC (Auto) 6 H Urine RBC (Auto) 7 H Ur Squamous Epith Cells 6 H Ur Transition Epith Cell < 1 Urine Bacteria Few H Hyaline Casts 3-5 H Urine Opiates Screen Negative Urine Methadone Screen Negative Ur Barbiturates Screen Negative Ur Phencyclidine Scrn Negative Ur Amphetamines Screen Negative U Benzodiazepines Scrn Positive U Oth Cocaine Metabols Positive H U Cannabinoids Screen Positive H Alcohol, Quantitative 09/21/17 09/21/17 09/21/17 16:50 16:54 18:24 WBC RBC Hgb Hct MCV MCH MCHC RDW Plt Count MPV Neut % (Auto) Lymph % (Auto) [place] % (Auto) Eos % (Auto) Baso % (Auto) Neut # Lymph # [place] # Eos # Baso # Sodium 129 L 129 L Potassium 5.3 H 3.7 Chloride 91 L 93 L Carbon Dioxide 32 H 28 Anion Gap 11 12 BUN 17 16 Creatinine 1.1 1.1 Est GFR ( Amer) > 60 > 60 Est GFR (Non-Af Amer) 53 53 POC Glucose (mg/dL) 292 H Random Glucose 331 H 294 H Calcium 8.9 8.5 L Total Bilirubin 0.7 0.3 AST 30 20 ALT 26 25 Alkaline Phosphatase 89 88 Total Protein 7.6 6.9 Albumin 3.9 3.8 Globulin 3.7 3.2 Albumin/Globulin Ratio 1.1 1.2 Urine Color Urine Clarity Urine pH Ur Specific [place] Urine Protein Urine Glucose (UA) Urine Ketones Urine Blood Urine Nitrate Urine Bilirubin Urine Urobilinogen Ur Leukocyte Esterase Urine WBC (Auto) Urine RBC (Auto) Ur Squamous Epith Cells Ur Transition Epith Cell Urine Bacteria Hyaline Casts Urine Opiates Screen Urine Methadone Screen Ur Barbiturates Screen Ur Phencyclidine Scrn Ur Amphetamines Screen U Benzodiazepines Scrn U Oth Cocaine Metabols U Cannabinoids Screen Alcohol, Quantitative < 10 09/21/17 09/21/17 09/21/17 19:37 20:11 20:44 WBC RBC Hgb Hct MCV MCH MCHC RDW Plt Count MPV Neut % (Auto) Lymph % (Auto) [place] % (Auto) Eos % (Auto) Baso % (Auto) Neut # Lymph # [place] # Eos # Baso # Sodium Potassium Chloride Carbon Dioxide Anion Gap BUN Creatinine Est GFR ( Amer) Est GFR (Non-Af Amer) POC Glucose (mg/dL) 262 H 287 H 280 H Random Glucose Calcium Total Bilirubin AST ALT Alkaline Phosphatase Total Protein Albumin Globulin Albumin/Globulin Ratio Urine Color Urine Clarity Urine pH Ur Specific [place] Urine Protein Urine Glucose (UA) Urine Ketones Urine Blood Urine Nitrate Urine Bilirubin Urine Urobilinogen Ur Leukocyte Esterase Urine WBC (Auto) Urine RBC (Auto) Ur Squamous Epith Cells Ur Transition Epith Cell Urine Bacteria Hyaline Casts Urine Opiates Screen Urine Methadone Screen Ur Barbiturates Screen Ur Phencyclidine Scrn Ur Amphetamines Screen U Benzodiazepines Scrn U Oth Cocaine Metabols U Cannabinoids Screen Alcohol, Quantitative 09/21/17 22:13 WBC RBC Hgb Hct MCV MCH MCHC RDW Plt Count MPV Neut % (Auto) Lymph % (Auto) [place] % (Auto) Eos % (Auto) Baso % (Auto) Neut # Lymph # [place] # Eos # Baso # Sodium Potassium Chloride Carbon Dioxide Anion Gap BUN Creatinine Est GFR ( Amer) Est GFR (Non-Af Amer) POC Glucose (mg/dL) 127 H Random Glucose Calcium Total Bilirubin AST ALT Alkaline Phosphatase Total Protein Albumin Globulin Albumin/Globulin Ratio Urine Color Urine Clarity Urine pH Ur Specific [place] Urine Protein Urine Glucose (UA) Urine Ketones Urine Blood Urine Nitrate Urine Bilirubin Urine Urobilinogen Ur Leukocyte Esterase Urine WBC (Auto) Urine RBC (Auto) Ur Squamous Epith Cells Ur Transition Epith Cell Urine Bacteria Hyaline Casts Urine Opiates Screen Urine Methadone Screen Ur Barbiturates Screen Ur Phencyclidine Scrn Ur Amphetamines Screen U Benzodiazepines Scrn U Oth Cocaine Metabols U Cannabinoids Screen Alcohol, Quantitative Assessment & Plan - Assessment and Plan (Free Text) Assessment: Hypertension Per psych nurse, patient not compliant with home BP meds Con't home med amlodipine 10mg PO QD Con't home med enalapril 10mg PO QD Beta Barby use is contraindicated due to history of recent cocaine use Nausea/ Vomiting Patient tolering regular diet Monitor - give zofran if N/V returns Diabetes HgbA1C 09/10: 7.7 RISS ACHS - Medium Dose Accucheck ACHS AC aspart insulin 5u Hypoglycemia protocol Hyperlipidemia Lipid panel 09/10: TGs NORMAL, Cholesterol 280 (HIGH), LDL 142 (HIGH), HDL 133 ( HIGH) Crestor 5mg PO HS Chest Pain Mid-sternum, reproducible to palpation Likely musculoskeletal 2/2 to vomiting/retching Patient describes chest pain exactly as on recent previous admission -> trops were negative x3, EKG was NSR F/U troponin F/U EKG Cocaine Use Disorder Management as per primary team Alcohol abuse/ Withdrawal Librium 25mg PO taper Folic Acid 1mg PO QD Multivitamin 1 tab PO QD Thamine 100mg PO QD Trazadone 50mg PO HS PRN All additional management as per primary team Prophylaxis Protonix 40mg PO QD Heparin 5000u SC Q12 Heart healthy diet <Jose Molina P - Last Filed: 09/23/17 00:25> Meds - Medications Medications: Current Medications Chlordiazepoxide (Librium) 25 mg PO Q6H [facility] PRN Reason: Taper Stop: 09/25/17 23:59 Last Admin: 09/22/17 06:22 Dose: Not Given Dextrose (Dextrose 50% Inj) 0 ml IV STAT PRN; Protocol PRN Reason: Hypoglycemia Protocol Dextrose (Glutose 15) 0 gm PO ONCE PRN; Protocol PRN Reason: Hypoglycemia Protocol Folic Acid (Folic Acid) 1 mg PO DAILY [facility] Glucagon (Glucagen Diagnostic Kit) 0 mg IM STAT PRN; Protocol PRN Reason: Hypoglycemia Protocol Heparin Sodium (Porcine) (Heparin) 5,000 units SC Q12 [facility] Dextrose (Dextrose 5% In Water 1000 Ml) 1,000 mls @ 0 mls/hr IV .Q0M PRN; Protocol; Per Protocol PRN Reason: Hypoglycemia Protocol Insulin Aspart (Novolog) 5 unit SC AC [facility] Insulin Human Regular (Novolin R) 0 unit SC ACHS [facility] PRN Reason: Protocol Lorazepam (Ativan) 2 mg IM ONCE ONE Stop: 09/22/17 07:21 Metoclopramide HCl (Reglan) 10 mg IM Q6H PRN PRN Reason: Nausea/Vomiting Multivitamins (Hexavitamin) 1 tab PO DAILY [facility] Ondansetron HCl (Zofran Odt) 8 mg PO Q8H PRN PRN Reason: Nausea/Vomiting Pantoprazole Sodium (Protonix Ec Tab) 40 mg PO DAILY [facility] Thiamine HCl (Vitamin B1 Tab) 100 mg PO DAILY [facility] Trazodone HCl (Desyrel) 50 mg PO HS PRN PRN Reason: Insomnia Results - Vital Signs Recent Vital Signs: Last Vital Signs Temp 99.1 F 09/22/17 05:30 Pulse 115 H 09/22/17 05:30 Resp 20 09/22/17 05:30 BP 134/74 09/22/17 05:30 Pulse Ox 100 09/22/17 05:30 - Labs Result Diagrams: 09/22/17 07:50 09/22/17 07:50 Labs: Laboratory Results - last 24 hr 09/21/17 09/21/17 09/21/17 16:28 16:28 16:50 WBC 8.9 D RBC 4.73 Hgb 13.4 Hct 40.3 MCV 85.3 MCH 28.3 MCHC 33.1 RDW 13.8 Plt Count 303 MPV 8.7 Neut % (Auto) 72.8 Lymph % (Auto) 17.2 L [place] % (Auto) 6.5 Eos % (Auto) 1.0 Baso % (Auto) 2.5 H Neut # 6.5 Lymph # 1.5 [place] # 0.6 Eos # 0.1 Baso # 0.2 Sodium Potassium Chloride Carbon Dioxide Anion Gap BUN Creatinine Est GFR ( Amer) Est GFR (Non-Af Amer) POC Glucose (mg/dL) Random Glucose Calcium Total Bilirubin AST ALT Alkaline Phosphatase Total Protein Albumin Globulin Albumin/Globulin Ratio Urine Color Yellow Urine Clarity Hazy Urine pH 5.0 Ur Specific [place] 1.026 Urine Protein 2+ H Urine Glucose (UA) 3+ H Urine Ketones Trace Urine Blood 1+ H Urine Nitrate Negative Urine Bilirubin Negative Urine Urobilinogen Normal Ur Leukocyte Esterase 1+ H Urine WBC (Auto) 6 H Urine RBC (Auto) 7 H Ur Squamous Epith Cells 6 H Ur Transition Epith Cell < 1 Urine Bacteria Few H Hyaline Casts 3-5 H Urine Opiates Screen Negative Urine Methadone Screen Negative Ur Barbiturates Screen Negative Ur Phencyclidine Scrn Negative Ur Amphetamines Screen Negative U Benzodiazepines Scrn Positive U Oth Cocaine Metabols Positive H U Cannabinoids Screen Positive H Alcohol, Quantitative 09/21/17 09/21/17 09/21/17 16:50 16:54 18:24 WBC RBC Hgb Hct MCV MCH MCHC RDW Plt Count MPV Neut % (Auto) Lymph % (Auto) [place] % (Auto) Eos % (Auto) Baso % (Auto) Neut # Lymph # [place] # Eos # Baso # Sodium 129 L 129 L Potassium 5.3 H 3.7 Chloride 91 L 93 L Carbon Dioxide 32 H 28 Anion Gap 11 12 BUN 17 16 Creatinine 1.1 1.1 Est GFR ( Amer) > 60 > 60 Est GFR (Non-Af Amer) 53 53 POC Glucose (mg/dL) 292 H Random Glucose 331 H 294 H Calcium 8.9 8.5 L Total Bilirubin 0.7 0.3 AST 30 20 ALT 26 25 Alkaline Phosphatase 89 88 Total Protein 7.6 6.9 Albumin 3.9 3.8 Globulin 3.7 3.2 Albumin/Globulin Ratio 1.1 1.2 Urine Color Urine Clarity Urine pH Ur Specific [place] Urine Protein Urine Glucose (UA) Urine Ketones Urine Blood Urine Nitrate Urine Bilirubin Urine Urobilinogen Ur Leukocyte Esterase Urine WBC (Auto) Urine RBC (Auto) Ur Squamous Epith Cells Ur Transition Epith Cell Urine Bacteria Hyaline Casts Urine Opiates Screen Urine Methadone Screen Ur Barbiturates Screen Ur Phencyclidine Scrn Ur Amphetamines Screen U Benzodiazepines Scrn U Oth Cocaine Metabols U Cannabinoids Screen Alcohol, Quantitative < 10 09/21/17 09/21/17 09/21/17 19:37 20:11 20:44 WBC RBC Hgb Hct MCV MCH MCHC RDW Plt Count MPV Neut % (Auto) Lymph % (Auto) [place] % (Auto) Eos % (Auto) Baso % (Auto) Neut # Lymph # [place] # Eos # Baso # Sodium Potassium Chloride Carbon Dioxide Anion Gap BUN Creatinine Est GFR ( Amer) Est GFR (Non-Af Amer) POC Glucose (mg/dL) 262 H 287 H 280 H Random Glucose Calcium Total Bilirubin AST ALT Alkaline Phosphatase Total Protein Albumin Globulin Albumin/Globulin Ratio Urine Color Urine Clarity Urine pH Ur Specific [place] Urine Protein Urine Glucose (UA) Urine Ketones Urine Blood Urine Nitrate Urine Bilirubin Urine Urobilinogen Ur Leukocyte Esterase Urine WBC (Auto) Urine RBC (Auto) Ur Squamous Epith Cells Ur Transition Epith Cell Urine Bacteria Hyaline Casts Urine Opiates Screen Urine Methadone Screen Ur Barbiturates Screen Ur Phencyclidine Scrn Ur Amphetamines Screen U Benzodiazepines Scrn U Oth Cocaine Metabols U Cannabinoids Screen Alcohol, Quantitative 09/21/17 22:13 WBC RBC Hgb Hct MCV MCH MCHC RDW Plt Count MPV Neut % (Auto) Lymph % (Auto) [place] % (Auto) Eos % (Auto) Baso % (Auto) Neut # Lymph # [place] # Eos # Baso # Sodium Potassium Chloride Carbon Dioxide Anion Gap BUN Creatinine Est GFR ( Amer) Est GFR (Non-Af Amer) POC Glucose (mg/dL) 127 H Random Glucose Calcium Total Bilirubin AST ALT Alkaline Phosphatase Total Protein Albumin Globulin Albumin/Globulin Ratio Urine Color Urine Clarity Urine pH Ur Specific [place] Urine Protein Urine Glucose (UA) Urine Ketones Urine Blood Urine Nitrate Urine Bilirubin Urine Urobilinogen Ur Leukocyte Esterase Urine WBC (Auto) Urine RBC (Auto) Ur Squamous Epith Cells Ur Transition Epith Cell Urine Bacteria Hyaline Casts Urine Opiates Screen Urine Methadone Screen Ur Barbiturates Screen Ur Phencyclidine Scrn Ur Amphetamines Screen U Benzodiazepines Scrn U Oth Cocaine Metabols U Cannabinoids Screen Alcohol, Quantitative Attending/Attestation - Attestation I have personally seen and examined this patient.: Yes I have fully participated in the care of the patient.: Yes I have reviewed all pertinent clinical information: Yes Notes (Text): Late entry based on exam done around 6:30 am. Assessment * Patient admitted to detox for alcohol, cocaine, marijuana * Patient had symptoms of nausea vomiting at home prior to coming and appears patient was not able to consume alcohol that made her come to hospital to prevent withdrawal * Nausea vomiting with h/o prior gastritis, suspected also gastroparesis * Uncontrolled dm but patient also not compliant hence home doses not known, also stress of withdrawal and complicated with poor intake due to gastritis, hence need more observation before making any regimen * Episodic htn related to above with episodes of low bp this admission strongly suggest that elevated bp is from fluctuations happening in response to above rather essential htn, hence will avoid bp meds treat symptoms of above rather bp * Suspect low electrolyte state and mild clinical dehydration on exam * hyperthyroid picture * Plan * Control gastritis with oral protonix, odt zofran, im reglan * Accuchecks * control anxiety and withdrawal symptoms * encourage oral hydration * Labs including mag, bmp, lipase, amylase * Im thiamine one dose * Avoid heparin subq till pt needing im injections * D/w staff and also signed out to colleague.
[2017-09-22] MEDS ORDERED: Glucagon Recombinant 1 mg Inj IM PRN (05:15)
[2017-09-22] MEDS ORDERED: Dextrose 50% SYRINGE Inj (50 ml) IV PRN (05:15)
[2017-09-22] MEDS ORDERED: (Novolog) Insulin Aspart, Recombinant 100 u/ml 10 ml vial SC SCH (07:30)
[2017-09-22] MEDS ORDERED: Thiamine 100 mg/ml Inj IM ONE (07:36)
[2017-09-22] MEDS: (Novolin R) Insulin Human Regular 100 units/ml vial SC SCH ×4 (07:53→21:33)
[2017-09-22 08:07] LABS: BASO % 0.4 % (0.0-2.0); EOS # 0.1 K/uL (0.0-0.7); EOS % 1.2 % (0.0-4.0); HEMOGLOBIN 12.9 g/dL (11.0-16.0); LYMPH # 1.3 K/uL (1.0-4.3); LYMPH % 20.7 % (20.0-40.0); MEAN CELL VOLUME 84.8 fL (81.0-99.0); MEAN CORPUSCULAR HGB CONC 34.2 g/dL (33.0-37.0); MEAN PLATELET VOLUME 8.5 fL (7.2-11.7); MONO # 0.4 K/uL (0.0-0.8); MONO % 6.8 % (0.0-10.0); NEUT # 4.5 K/uL (1.8-7.0); NEUT % 70.9 % (50.0-75.0); NRBC % 0.1 % (0.0-2.0); RBC 4.44 Mil/uL (3.80-5.20); RED CELL DISTRIBUTION WIDTH 13.6 % (11.5-14.5); WHITE BLOOD COUNT 6.4 K/uL (4.8-10.8)
[2017-09-22 08:21] LABS: ALB/GLOB RATIO 1.2 (1.0-2.1); ALBUMIN 3.8 g/dL (3.5-5.0); ALT/SGPT 25 U/L (9-52); AMYLASE 66 U/L (30-110); AST/SGOT 20 U/L (14-36); BLOOD UREA NITROGEN 14 mg/dL (7-17); CALCIUM 8.6 mg/dl (8.6-10.4); GFR AFRICAN-AMERICAN > 60; GFR NON-AFRICAN AMERICAN > 60; LIPASE 129 U/L (23-300); MAGNESIUM 1.6 mg/dL (1.6-2.3)
[2017-09-22 08:36] LABS: CK-MB 1.98 ng/mL (0.0-3.38)
[2017-09-22] MEDS: Multiple Vitamins Tab PO SCH (10:50)
[2017-09-22] MEDS: Pantoprazole 40 mg EC Tab PO SCH (11:21)
--- NOTE | 2017-09-22 15:00 | CP.PCM.PN ---
Subjective - Date & Time of Evaluation Date of Evaluation: 09/22/17 Time of Evaluation: 14:23 - Subjective Subjective: PGY1 Medicine Note for Dr. Fahad Gonzales Patient seen and examined at bedside this afternoon. The patient states she is feeling much better this afternoon compared to earlier this morning. She reports improved abdominal pain, which she describes as gas pain. She states that she was able to eat some food this morning. She has to stop because she got a little bit nauseous, but this improved soon after she stopped eating. She did not vomit. She states she is hungry and will attempt to eat a little bit more. She is requesting medication to "coat" her stomach before she eats, but states she does not want any pain medications. Patient states she has not had a bowel movement in a few days and is requesting medication to help her go. She denies fevers, chills, diarrhea, chest pain, headache, numbness or tingling. Objective - Vital Signs/Intake and Output Vital Signs (last 24 hours): Temp Pulse Resp BP Pulse Ox 98.2 F 97 H 18 169/87 H 98 09/22/17 09:08 09/22/17 09:08 09/22/17 09:08 09/22/17 09:08 09/22/17 09:08 - Medications Medications: Current Medications Amlodipine Besylate (Norvasc) 10 mg PO DAILY [facility] Last Admin: 09/22/17 11:30 Dose: 10 mg Chlordiazepoxide (Librium) 25 mg PO Q6H [facility] PRN Reason: Taper Stop: 09/25/17 23:59 Last Admin: 09/22/17 12:41 Dose: 25 mg Dextrose (Dextrose 50% Inj) 0 ml IV STAT PRN; Protocol PRN Reason: Hypoglycemia Protocol Dextrose (Glutose 15) 0 gm PO ONCE PRN; Protocol PRN Reason: Hypoglycemia Protocol Enalapril Maleate (Vasotec) 10 mg PO HS [facility] Stop: 09/25/17 22:01 Folic Acid (Folic Acid) 1 mg PO DAILY [facility] Last Admin: 09/22/17 10:50 Dose: Not Given Glucagon (Glucagen Diagnostic Kit) 0 mg IM STAT PRN; Protocol PRN Reason: Hypoglycemia Protocol Dextrose (Dextrose 5% In Water 1000 Ml) 1,000 mls @ 0 mls/hr IV .Q0M PRN; Protocol; Per Protocol PRN Reason: Hypoglycemia Protocol Insulin Human Regular (Novolin R) 0 unit SC ACHS [facility] PRN Reason: Protocol Last Admin: 09/22/17 11:34 Dose: 4 unit Metoclopramide HCl (Reglan) 10 mg IM Q6H PRN PRN Reason: Nausea/Vomiting Multivitamins (Hexavitamin) 1 tab PO DAILY [facility] Last Admin: 09/22/17 10:50 Dose: Not Given Ondansetron HCl (Zofran Odt) 8 mg PO Q8H [facility] Stop: 09/23/17 09:00 Last Admin: 09/22/17 12:02 Dose: 8 mg Pantoprazole Sodium (Protonix Ec Tab) 40 mg PO DAILY [facility] Last Admin: 09/22/17 11:21 Dose: 40 mg Rosuvastatin Calcium (Crestor) 5 mg PO HS [facility] Thiamine HCl (Vitamin B1 Tab) 100 mg PO DAILY [facility] Last Admin: 09/22/17 10:51 Dose: Not Given Trazodone HCl (Desyrel) 50 mg PO HS PRN PRN Reason: Insomnia - Labs Labs: 09/22/17 07:50 09/22/17 07:50 - Constitutional Appears: Non-toxic, No Acute Distress - Head Exam Head Exam: ATRAUMATIC, NORMOCEPHALIC - Eye Exam Eye Exam: EOMI, Normal appearance, PERRL - ENT Exam ENT Exam: Mucous Membranes Moist - Respiratory Exam Respiratory Exam: Clear to Ausculation Bilateral, NORMAL BREATHING PATTERN. absent: Accessory Muscle Use, Rales, Rhonchi, Wheezes, Respiratory Distress - Cardiovascular Exam Cardiovascular Exam: REGULAR RHYTHM, +S1 - GI/Abdominal Exam GI & Abdominal Exam: Soft, Normal Bowel Sounds. absent: Firm, Guarding, Rigid, Tenderness - Extremities Exam Extremities Exam: Normal Inspection. absent: Calf Tenderness, Pedal Edema - Neurological Exam Neurological Exam: Alert, Awake, CN II-XII Intact, Normal Gait, Oriented x3 - Psychiatric Exam Psychiatric exam: Normal Affect, Normal Mood - Skin Skin Exam: Dry, Warm Assessment and Plan - Assessment and Plan (Free Text) Plan: Hypertension Per psych nurse, patient not compliant with home BP meds Amlodipine 10mg PO QD Enalapril 10mg PO HS Beta Barby use is contraindicated due to history of recent cocaine use Nausea/ Vomiting Patient tolerating regular diet Monitor - give zofran if N/V returns Diabetes HgbA1C 09/10: 7.7 RISS ACHS - Medium Dose Accucheck ACHS AC aspart insulin 5u Hypoglycemia protocol Hyperlipidemia Lipid panel 09/10: TGs NORMAL, Cholesterol 280 (HIGH), LDL 142 (HIGH), HDL 133 ( HIGH) Crestor 5mg PO HS Chest Pain Resolved. Likely musculoskeletal 2/2 to vomiting/retching Patient describes chest pain exactly as on recent previous admission (09/13) trops were negative x3, EKG was NSR troponin (09/22) <0.12 TSH 0.20 Free T4 1.34 Cocaine Use Disorder Management as per primary team Alcohol abuse/ Withdrawal Librium 25mg PO taper Folic Acid 1mg PO QD Multivitamin 1 tab PO QD Thamine 100mg PO QD Trazadone 50mg PO HS PRN All additional management as per primary team Prophylaxis Protonix 40mg PO QD Heparin 5000u SC Q12 [place] 100mg QD Heart healthy diet Case discussed with Dr. Carmine Alejo Megan PGY1
[2017-09-22] MEDS ORDERED: Aluminum Hydroxide/Magnesium Hydroxide Susp (30 mL) PO PRN (15:59)
[2017-09-22] MEDS: Albuterol HFA 90 mcg/actuation (8 g) INH PRN (21:21)
[2017-09-23] MEDS: (Novolin R) Insulin Human Regular 100 units/ml vial SC SCH ×4 (08:22→21:28)
[2017-09-23] MEDS: Multiple Vitamins Tab PO SCH (09:33)
[2017-09-23] MEDS: Pantoprazole 40 mg EC Tab PO SCH (09:33)
[2017-09-23] MEDS: Albuterol HFA 90 mcg/actuation (8 g) INH PRN (15:45)
[2017-09-23 16:59] VITALS: RESP 18; TEMP 97.6
[2017-09-23 17:09] LABS: BLOOD UREA NITROGEN 22 mg/dL (7-17); CALCIUM 8.8 mg/dl (8.6-10.4); GFR AFRICAN-AMERICAN > 60; GFR NON-AFRICAN AMERICAN 59
--- NOTE | 2017-09-23 17:38 | CP.PCM.PN ---
<Melo Guzman - Last Filed: 09/23/17 17:32> Subjective - Date & Time of Evaluation Date of Evaluation: 09/23/17 Time of Evaluation: 09:35 - Subjective Subjective: PGY1 Medicine Note for Dr. Carmine Gonzales Patient seen and examined at bedside this morning. Patient is in good spirits this morning. Patient reports her abdominal pain and nausea is greatly improved. She states she has still not had a bowel movement but her gas pains are much better. She is tolerating her diet and did not get nauseous after eating. Patient states she is doing well and has no complaints at this time. She denies any fevers, chills, chest pain, headache, numbness or tingling. Objective - Vital Signs/Intake and Output Vital Signs (last 24 hours): Temp Pulse Resp BP Pulse Ox 97.6 F 80 18 128/76 100 09/23/17 16:58 09/23/17 16:58 09/23/17 16:58 09/23/17 16:58 09/23/17 16:58 - Medications Medications: Current Medications Al Hydrox/Mg Hydrox/Simethicone (Maalox 30 Ml) 30 ml PO Q8 PRN PRN Reason: Indigestion / Heartburn Last Admin: 09/22/17 16:04 Dose: 30 ml Albuterol (Ventolin Hfa 90 Mcg/Actuation (8 G)) 1 puff INH RQ6 PRN PRN Reason: Shortness of Breath Last Admin: 09/23/17 15:45 Dose: 1 puff Amlodipine Besylate (Norvasc) 10 mg PO DAILY [facility] Last Admin: 09/23/17 09:33 Dose: 10 mg Celecoxib (Celebrex) 100 mg PO BID [facility] Last Admin: 09/23/17 17:10 Dose: 100 mg Chlordiazepoxide (Librium) 25 mg PO Q8H [facility]I PRN Reason: Taper Stop: 09/25/17 23:59 Last Admin: 09/23/17 16:19 Dose: 25 mg Dextrose (Dextrose 50% Inj) 0 ml IV STAT PRN; Protocol PRN Reason: Hypoglycemia Protocol Dextrose (Glutose 15) 0 gm PO ONCE PRN; Protocol PRN Reason: Hypoglycemia Protocol Dicyclomine HCl (Bentyl) 10 mg PO QID PRN PRN Reason: stomach cramps Last Admin: 09/22/17 16:04 Dose: 10 mg Docusate Sodium (Colace) 100 mg PO DAILY [facility] Last Admin: 09/23/17 09:33 Dose: 100 mg Enalapril Maleate (Vasotec) 10 mg PO HS [facility] Stop: 09/25/17 22:01 Last Admin: 09/22/17 21:28 Dose: Not Given Folic Acid (Folic Acid) 1 mg PO DAILY [facility] Last Admin: 09/23/17 09:33 Dose: 1 mg Gabapentin (Neurontin) 100 mg PO TID [facility] Last Admin: 09/23/17 17:10 Dose: 100 mg Glucagon (Glucagen Diagnostic Kit) 0 mg IM STAT PRN; Protocol PRN Reason: Hypoglycemia Protocol Dextrose (Dextrose 5% In Water 1000 Ml) 1,000 mls @ 0 mls/hr IV .Q0M PRN; Protocol; Per Protocol PRN Reason: Hypoglycemia Protocol Insulin Human Regular (Novolin R) 0 unit SC ACHS TRACI PRN Reason: Protocol Last Admin: 09/23/17 16:15 Dose: 8 unit Metoclopramide HCl (Reglan) 10 mg IM Q6H PRN PRN Reason: Nausea/Vomiting Multivitamins (Hexavitamin) 1 tab PO DAILY [facility] Last Admin: 09/23/17 09:33 Dose: 1 tab Nicotine (Nicoderm Cq) 1 patch TD DAILY [facility] Last Admin: 09/23/17 09:35 Dose: 1 patch Pantoprazole Sodium (Protonix Ec Tab) 40 mg PO DAILY [facility] Last Admin: 09/23/17 09:33 Dose: 40 mg Rosuvastatin Calcium (Crestor) 5 mg PO HS [facility] Last Admin: 09/22/17 21:25 Dose: 5 mg Sertraline HCl (Zoloft) 100 mg PO DAILY [facility] Thiamine HCl (Vitamin B1 Tab) 100 mg PO DAILY [facility] Last Admin: 09/23/17 09:33 Dose: 100 mg Trazodone HCl (Desyrel) 50 mg PO HS PRN PRN Reason: Insomnia Last Admin: 09/22/17 21:25 Dose: 50 mg - Labs Labs: 09/22/17 07:50 09/23/17 16:34 - Constitutional Appears: Non-toxic, No Acute Distress - Head Exam Head Exam: ATRAUMATIC, NORMOCEPHALIC - Eye Exam Eye Exam: EOMI, Normal appearance, PERRL - ENT Exam ENT Exam: Mucous Membranes Moist - Respiratory Exam Respiratory Exam: Clear to Ausculation Bilateral, NORMAL BREATHING PATTERN. absent: Accessory Muscle Use, Rales, Rhonchi, Wheezes, Respiratory Distress - Cardiovascular Exam Cardiovascular Exam: REGULAR RHYTHM, +S1. absent: JVD - GI/Abdominal Exam GI & Abdominal Exam: Soft, Normal Bowel Sounds. absent: Distended, Firm, Guarding, Rigid, Tenderness - Neurological Exam Neurological Exam: Alert, Awake, Oriented x3 - Psychiatric Exam Psychiatric exam: Normal Affect, Normal Mood - Skin Skin Exam: Dry, Warm Assessment and Plan - Assessment and Plan (Free Text) Plan: Hypertension Per psych nurse, patient not compliant with home BP meds Amlodipine 10mg PO QD Enalapril 10mg PO HS Beta Barby use is contraindicated due to history of recent cocaine use Nausea/ Vomiting Patient tolerating regular diet Monitor - give zofran if N/V returns Diabetes HgbA1C 09/10: 7.7 RISS ACHS - Medium Dose Accucheck ACHS AC aspart insulin 5u Hypoglycemia protocol Hyperlipidemia Lipid panel 09/10: TGs NORMAL, Cholesterol 280 (HIGH), LDL 142 (HIGH), HDL 133 ( HIGH) Crestor 5mg PO HS Chest Pain Resolved. Likely musculoskeletal 2/2 to vomiting/retching Patient describes chest pain exactly as on recent previous admission (09/13) trops were negative x3, EKG was NSR troponin (09/22) <0.12 TSH 0.20 Free T4 1.34 Cocaine Use Disorder Management as per primary team Alcohol abuse/ Withdrawal Librium 25mg PO taper Folic Acid 1mg PO QD Multivitamin 1 tab PO QD Thamine 100mg PO QD Trazadone 50mg PO HS PRN All additional management as per primary team Prophylaxis Protonix 40mg PO QD Heparin 5000u SC Q12 Colace 100mg QD Heart healthy diet DISPO: Patient is medically stable. Will leave prescriptions for the following medications in her chart: Amlodipine 10mg, 1 tab PO daily (breakfast) - disp 30 no refills Lisinopril 10mg, 1 tab PO daily (dinner) - disp 30 no refills Omeprazole 20mg, , 1 tab PO daily (breakfast) - disp 30 no refills Colace 100mg, 1 tab PO BID (breakfast and dinner) - disp 30 no refills - stop once you have a bowel movement Tresiba Flextouch U-200, 5units SC once in the morning - disp 1, no refills Insulin Aspart (Novolog Flexpen), 5 units SC TIDAC - disp 1, no refills Please f/u at [facility] in the [facility] within 7 -10 days following discharge. Please call to schedule an appointment. They will help to coordinate your care. Case discussed with Dr. Carmine Guzman PGY1 <Ilya Gonzales - Last Filed: 09/23/17 19:41> Objective - Vital Signs/Intake and Output Vital Signs (last 24 hours): Temp Pulse Resp BP Pulse Ox 97.6 F 80 18 128/76 100 09/23/17 16:58 09/23/17 16:58 09/23/17 16:58 09/23/17 16:58 09/23/17 16:58 - Medications Medications: Current Medications Al Hydrox/Mg Hydrox/Simethicone (Maalox 30 Ml) 30 ml PO Q8 PRN PRN Reason: Indigestion / Heartburn Last Admin: 09/22/17 16:04 Dose: 30 ml Albuterol (Ventolin Hfa 90 Mcg/Actuation (8 G)) 1 puff INH RQ6 PRN PRN Reason: Shortness of Breath Last Admin: 09/23/17 15:45 Dose: 1 puff Amlodipine Besylate (Norvasc) 10 mg PO DAILY [facility] Last Admin: 09/23/17 09:33 Dose: 10 mg Celecoxib (Celebrex) 100 mg PO BID [facility] Last Admin: 09/23/17 17:10 Dose: 100 mg Chlordiazepoxide (Librium) 25 mg PO Q8H TRACI PRN Reason: Taper Stop: 09/25/17 23:59 Last Admin: 09/23/17 16:19 Dose: 25 mg Dicyclomine HCl (Bentyl) 10 mg PO QID PRN PRN Reason: stomach cramps Last Admin: 09/22/17 16:04 Dose: 10 mg Docusate Sodium (Colace) 100 mg PO DAILY [facility] Last Admin: 09/23/17 09:33 Dose: 100 mg Enalapril Maleate (Vasotec) 10 mg PO [facility] Stop: 09/25/17 22:01 Last Admin: 09/22/17 21:28 Dose: Not Given Folic Acid (Folic Acid) 1 mg PO DAILY [facility] Last Admin: 09/23/17 09:33 Dose: 1 mg Gabapentin (Neurontin) 100 mg PO TID [facility] Last Admin: 09/23/17 17:10 Dose: 100 mg Insulin Human Regular (Novolin R) 0 unit SC ACHS [facility] PRN Reason: Protocol Last Admin: 09/23/17 16:15 Dose: 8 unit Metoclopramide HCl (Reglan) 10 mg IM Q6H PRN PRN Reason: Nausea/Vomiting Multivitamins (Hexavitamin) 1 tab PO DAILY [facility] Last Admin: 09/23/17 09:33 Dose: 1 tab Nicotine (Nicoderm Cq) 1 patch TD DAILY [facility] Last Admin: 09/23/17 09:35 Dose: 1 patch Pantoprazole Sodium (Protonix Ec Tab) 40 mg PO DAILY [facility] Last Admin: 09/23/17 09:33 Dose: 40 mg Rosuvastatin Calcium (Crestor) 5 mg PO HS [facility] Last Admin: 09/22/17 21:25 Dose: 5 mg Sertraline HCl (Zoloft) 100 mg PO DAILY [facility] Thiamine HCl (Vitamin B1 Tab) 100 mg PO DAILY [facility] Last Admin: 09/23/17 09:33 Dose: 100 mg Trazodone HCl (Desyrel) 50 mg PO HS PRN PRN Reason: Insomnia Last Admin: 09/22/17 21:25 Dose: 50 mg - Labs Labs: 09/22/17 07:50 09/23/17 16:34 Attending/Attestation - Attestation I have personally seen and examined this patient.: Yes I have fully participated in the care of the patient.: Yes I have reviewed all pertinent clinical information, including history, physical exam and plan: Yes Notes (Text): 09/23/17 19:38 Patient was seen and examined at 4:30 PM. Exam, assessment and plan were thoroughly gone over with the resident. HEENT, Cardia, Resp, GI, Ext, Neuro exams are unremarkable. N/V have resolved Her blood pressure is under control Recommended prescriptions from Medicine Team Perspective have been placed in the chart and patient will need to follow up at [facility] for coordination of her health care. Please let us know if there are any further issues while the patient is still on the Psychiatry service. Medicine Team will sign off on this patient. Ilya Gonzales D.O.
[2017-09-24 05:51] VITALS: BP 121/74; PULSE 77; O2SAT 99
[2017-09-24] MEDS: (Novolin R) Insulin Human Regular 100 units/ml vial SC SCH (08:10)
--- NOTE | 2017-09-24 10:03 | PCM.PYCHPN ---
Mental Status Examination - Homicidal Ideation Homicidal Ideation: No
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
--- NOTE | 2017-09-24 18:05 | PCM.PYCHPN ---
Psychiatric Progress Note - Psychiatric Progress Note Patient Chief Complaint: Nu PT ME TO DROP MY PANTS AND SHOW ME WHST YOU HAVE Problems Identified/Issues Discussed: HOW TO HANDLE SEXUAL HARRASMENT SOBRIETY, OPTIONS FOR AFTER CARE PAWS Medical Problems: HTN GERD DM TYPE 1 ARTHRITIS Diagnostic Results: REVIEWED DSM 5 Symptoms Update: ANGER IRRITABILITY Medication Change: Yes (JIBTIUM TAPER) Medical Record Reviewed: Yes Mental Status Examination - Cognitive Function Orientation: Place, Situation, Time Memory: Intact Attention: WNL Concentration: WNL Association: WNL Fund of Knowledge: WNL - Mood Mood: Depressed, Anxious - Affect Affect: Constricted - Speech Speech: Soft - Formal Thought Process Formal Thought Process: No Impairment - Suicidal Ideation Suicidal Ideation: No - Homicidal Ideation Homicidal Ideation: No Goal/Treatment Plan - Goal/Treatment Plan Need for Continued Stay: Discharge may exacerbated symptoms Progress Toward Problem(s) and Goals/Treatment Plan: ALCOHOL USE DISORDER SEVERE GROUP MILIEU RECREATIONAL THERAPY MN CBT SUPPORTIVE PSYCHOTHERY ALCOHOL WITHDRAWAL LIBRIUM PRN COCAINE USE DISORDER SEVERE GROUP MILIEU RECREATIONAL THERAPY MN CBT SUPPORTIVE PSYCHOTHERAPY COCAINE WITHDRAWAL NEURONTIN FOR ANXIETY CANNABIS USE DISORDER SEVERE GROUP MILIEU RECREATIONAL THERAPY MN CBT SUPPORTIVE PSYCHOTHERAPY CANNABIS WITHDRAWAL NEURONTIN FOR ANXIETY NAJOR DEPRESSION DISORDER ZOLOFT TRAZODONE HTN VASOTEC NORVASC ASTHMA INHALER GERD PROTONIX ARTHRITIS CELEBREX DIABETES TYPE 1 CO Estimated Date of D/C: 09/26/17 - Smoking Cessation Smoking Cessation Initiated: Yes
--- NOTE | 2017-09-25 13:18 | CARD ---
APPROVED REPORT EKG Measurement Heart [id number] <Conclusion> Normal sinus rhythm Possible Left atrial enlargement Left axis deviation Abnormal ECG
== END 2017-09-24 09:40 | disposition left against medical advice (07) | DRG 894 ==
LOC: C.ER 15:35 → C.7D 22:30
PROVIDERS: ADMIT Psychiatry & Neurology Psychiatry; ATTEND Psychiatry & Neurology Psychiatry
PROC: HZ2ZZZZ Detoxification Services for Substance Abuse Treatment (ICD-10-PCS; principal; 2017-09-21)
PROC: HZ52ZZZ Individual Psychotherapy for Substance Abuse Treatment, Cognitive-Behavioral (ICD-10-PCS; 2017-09-21)
PROC: HZ59ZZZ Individual Psychotherapy for Substance Abuse Treatment, Supportive (ICD-10-PCS; 2017-09-21)
PROC: HZ57ZZZ Individual Psychotherapy for Substance Abuse Treatment, Motivational Enhancement (ICD-10-PCS; 2017-09-21)
DX: F10.230 Alcohol dependence with withdrawal, uncomplicated (principal); F33.1 Major depressive disorder, recurrent, moderate; E10.9 Type 1 diabetes mellitus without complications; E78.5 Hyperlipidemia, unspecified; F14.23 Cocaine dependence with withdrawal; F12.288 Cannabis dependence with other cannabis-induced disorder; F41.9 Anxiety disorder, unspecified; I10 Essential (primary) hypertension; J45.909 Unspecified asthma, uncomplicated; K21.9 Gastro-esophageal reflux disease without esophagitis; M19.90 Unspecified osteoarthritis, unspecified site; Z63.8 Other specified problems related to primary support group; Z79.4 Long term (current) use of insulin; F17.210 Nicotine dependence, cigarettes, uncomplicated

== ENCOUNTER 2017-11-05 18:02 | Emergency (ER) | payer MEDICARE ==
[2017-11-05 20:17] VITALS: RESP 20
[2017-11-05 20:46] LABS: SQUAMOUS EPITHIAL 14 /hpf (0-5); URINE BACTERIA RARE (<OCC); URINE BILIRUBIN NEGATIVE (NEGATIVE); URINE CLARITY Hazy (Clear); URINE COLOR Yellow (YELLOW); URINE GLUCOSE (UA) 3+ mg/dL (Normal); URINE NITRATE NEGATIVE (NEGATIVE); URINE PROTEIN 2+ mg/dL (NEGATIVE); URINE UROBILINOGEN NORMAL mg/dL (0.2-1.0)
[2017-11-05 20:47] LABS: URINE BLOOD 3+ (NEGATIVE); URINE LEUKOCYTE ESTERASE NEGATIVE Leu/uL (Negative)
[2017-11-05 20:55] LABS: BARBITURATES, UR NEGATIVE (NEGATIVE); BENZODIAZEPINES, UR NEGATIVE (NEGATIVE); OPIATES, UR NEGATIVE (NEGATIVE); PHENCYCLIDINE, UR NEGATIVE (NEGATIVE)
[2017-11-05] MEDS ORDERED: Sodium Chloride 0.9% 1,000 ML IV STA (21:16)
[2017-11-05 21:49] LABS: BASO % 0.6 % (0.0-2.0); EOS % 0.3 % (0.0-4.0); HEMOGLOBIN 13.9 g/dL (11.0-16.0); LYMPH # 0.8 K/uL (1.0-4.3); LYMPH % 13.4 % (20.0-40.0); MEAN CELL VOLUME 84.2 fL (81.0-99.0); MEAN CORPUSCULAR HEMOGLOBIN 28.1 pg (27.0-31.0); MEAN CORPUSCULAR HGB CONC 33.3 g/dL (33.0-37.0); MEAN PLATELET VOLUME 8.5 fL (7.2-11.7); MONO # 0.3 K/uL (0.0-0.8); MONO % 4.1 % (0.0-10.0); NEUT % 81.6 % (50.0-75.0); RBC 4.94 Mil/uL (3.80-5.20); RED CELL DISTRIBUTION WIDTH 14.6 % (11.5-14.5); WHITE BLOOD COUNT 6.2 K/uL (4.8-10.8)
[2017-11-05 22:02] LABS: ALB/GLOB RATIO 1.1 (1.0-2.1); ALBUMIN 4.6 g/dL (3.5-5.0); CALCIUM 10.5 mg/dl (8.6-10.4); GFR AFRICAN-AMERICAN > 60; GFR NON-AFRICAN AMERICAN > 60; LIPASE 133 U/L (23-300)
[2017-11-05 22:05] LABS: ALT/SGPT 19 U/L (9-52); AST/SGOT 29 U/L (14-36); BLOOD UREA NITROGEN 18 mg/dL (7-17)
[2017-11-05] MEDS ORDERED: Sodium Chloride 0.9% 1,000 ML ONE (23:09)
[2017-11-05 23:39] LABS: VENOUS BLOOD GAS BASE EXCESS 0.3 mmol/L (0.0-2.0); VENOUS BLOOD GAS PCO2 42 mmHg (40-60); VENOUS BLOOD GAS PO2 63 mm/Hg (30-55); VENOUS BLOOD PH 7.39 (7.32-7.43)
[2017-11-06] MEDS ORDERED: Sodium Chloride 0.9% 1,000 ML IV ONE (00:19)
[2017-11-06] MEDS ORDERED: Sodium Chloride 0.9% 1,000 ML ONE (00:41)
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
[2017-11-06 02:16] VITALS: BP 130/76; PULSE 68; TEMP 99.1; O2SAT 100
--- NOTE | 2017-11-06 08:37 | RAD ---
PROCEDURE: Radiographs of the chest and abdomen (obstructive series) HISTORY: Cough COMPARISON: Chest x-ray 03/02/2015 ; venue manager from CT abdomen and pelvis 06/06/2017 TECHNIQUE: AP radiograph of the chest, with upright and supine radiographs of the abdomen. FINDINGS: CHEST: Lungs: No consolidation no consolidation. Bilateral interstitial markings appear increased - scarring and/or asymmetrical left 1st anterior coaster cartilaginous junctional calcification. Cardiovascular: Normal size heart. No pulmonary vascular congestion. Pleura: No pleural fluid. No pneumothorax. Other findings: None. ABDOMEN AND PELVIS: Bowel: Stool retention.. No evidence of mechanical obstruction. Free air: None. Bones: Thoraco lumbar spondylosis. Mid to inferior lumbar jammed disc disease Bilateral shoulder arthrosis bilateral hip arthrosis Other findings: None. IMPRESSION: No infiltrate. Diffuse interval increased interstitial lung markings - nonspecific. No evidence of mechanical bowel obstruction.Straight lateral and spot compression views Thoraco lumbar and bilateral hip degenerative changes
== END 2017-11-06 02:10 | disposition home or self-care (01) ==
LOC: C.ER 18:02
DX: R11.2 Nausea with vomiting, unspecified (principal)
CPT/HCPCS: 74022; 80053; 81001; 82803; 83690; 85025; 87804; 96361; 96374; 96375; 99283; C9113; G0480; J2405; J2765; J7040

== ENCOUNTER 2018-03-13 10:52 | Emergency (ER) | payer MEDICARE ==
[2018-03-13 10:59] VITALS: TEMP 98.6
[2018-03-13] MEDS ORDERED: Sodium Chloride 0.9% 1,000 ML IV ONE ×2 (12:21→16:12)
--- NOTE | 2018-03-13 12:21 | C.PDOC ---
History Of Present Illness <Mariya Arthur - Last Filed: 03/13/18 13:08> <Marissa Schneider - Last Filed: 03/13/18 17:37> 47yo female, presents to ED complaining of epigastric abdominal pain and elevated blood sugar for the past 3-4 days. She reports she is complaint with her medication but they are "not helping the sugar." Patient has prior admissions for malignant hypertension, and cocaine/alcohol abuse. At present, patient denies any recent drug abuse. She denies any fever, chills, chest pain, shortness of breath, vomiting, diarrhea, weakness. She offers no other medical complaints. (Mariya Arthur) History Per: Patient History/Exam Limitations: no limitations Onset/Duration Of Symptoms: Days Current Symptoms Are (Timing): Still Present Additional History Per: Patient <Mariya Arthur - Last Filed: 03/13/18 13:08> <Marissa Schneider - Last Filed: 03/13/18 17:37> Time Seen by Provider: 03/13/18 12:14 Chief Complaint (Nursing): Abdominal Pain Past Medical History Reviewed: Historical Data, Nursing Documentation, Vital Signs - Medical History PMH: Anxiety, Asthma, Depression, Diabetes, HTN Denies: HIV, Chronic Kidney Disease, Seizures, Sexually Transmitted Disease Surgical History: Family History: States: Unknown Family Hx - Social History Hx Tobacco Use: Yes Hx Alcohol Use: Yes Hx Substance Use: Yes - Immunization History Hx Tetanus Toxoid Vaccination: No Hx Influenza Vaccination: No Hx Pneumococcal Vaccination: No <Mariya Arthur - Last Filed: 03/13/18 13:08> Vital Signs: Last Vital Signs Temp 98.6 F 03/13/18 10:55 Pulse 97 H 03/13/18 17:13 Resp 16 03/13/18 17:13 BP 156/69 H 03/13/18 17:13 Pulse Ox 100 03/13/18 17:13 - [facility] DETOXIFICATION SERVICES FOR SUBSTANCE ABUSE TREATMENT (09/21/17) INDIV PSYCHOTHERAPY FOR SUBSTANCE ABUSE TREATMENT, SUPPORT (09/21/17) INDIV PSYCHOTHERAPY FOR SUBSTANCE ABUSE, COGNITIV BEHAVIORAL (09/21/17) INDIV PSYCHOTHERAPY FOR SUBSTANCE ABUSE, MOTIVATION ENHANCE (09/21/17) Review Of Systems Except As Marked, All Systems Reviewed And Found Negative. Constitutional: Negative for: Fever, Chills Cardiovascular: Negative for: Chest Pain Respiratory: Negative for: Shortness of Breath Gastrointestinal: Positive for: Abdominal Pain. Negative for: Nausea, Vomiting , Diarrhea Neurological: Negative for: Weakness <Mariya Arthur - Last Filed: 03/13/18 13:08> Physical Exam - Physical Exam Appears: Non-toxic, No Acute Distress Skin: Normal Color, Warm, Dry Head: Atraumatic, Normacephalic Eye(s): bilateral: Normal Inspection, EOMI Nose: Normal Oral Mucosa: Moist Neck: Normal ROM, Supple Chest: Symmetrical Cardiovascular: Rhythm Regular Respiratory: Normal Breath Sounds Gastrointestinal/Abdominal: Normal Exam, Soft, No Tenderness, No Mass, No Guarding, No Rebound Back: Normal Inspection Extremity: Normal ROM, No Pedal Edema Neurological/Psych: Oriented x3, Normal Speech, Normal Cognition, Normal Motor, Normal Sensation <Mariya Arthur - Last Filed: 03/13/18 13:08> ED Course And Treatment - Laboratory Results Result Diagrams: 03/13/18 12:34 03/13/18 12:34 ECG: Interpreted By Me, Viewed By Me ECG Rhythm: Sinus Tachycardia ECG Interpretation: Normal Rate From EC O2 Sat by Pulse Oximetry: 98 (RA) Pulse Ox Interpretation: Normal <Mariya Arthur - Last Filed: 03/13/18 13:08> - Laboratory Results Result Diagrams: 03/13/18 12:34 03/13/18 12:34 <Marissa Schneider - Last Filed: 03/13/18 17:37> Progress - Data Reviewed Data Reviewed: Lab, Diagnostic imaging, EKG, Old records <Mariya Arthur - Last Filed: 03/13/18 13:08> Disposition - Disposition Disposition Time: 13:00 <Mariya Arthur - Last Filed: 03/13/18 13:08> Counseled Patient/Family Regarding: Studies Performed, Diagnosis, Need For Followup - Disposition Disposition Time: 17:30 <Marissa Schneider - Last Filed: 03/13/18 17:37> - Disposition Referrals: Greyson Cardenas MD [Medical Doctor] - Disposition: HOME/ ROUTINE Condition: STABLE Additional Instructions: FOLLOW UP WITH YOUR DOCTOR/CLINIC IN 1-2 DAYS RETURN TO ER IF SYMPTOMS WORSEN Instructions: Hyperglycemia, Adult (DC) Forms: [facility] (Danish) - Clinical Impression Clinical Impression: Diabetes mellitus type 2, uncontrolled - Scribe Statement The provider has reviewed the documentation as recorded by the Scribe (Audrey Billy) <Mariya Arthur - Last Filed: 03/13/18 13:08> <Marissa Schneider - Last Filed: 03/13/18 17:37> - Scribe Statement Provider Attestation: All medical record entries made by the Scribe were at my direction and personally dictated by me. I have reviewed the chart and agree that the record accurately reflects my personal performance of the history, physical exam, medical decision making, and the department course for this patient. I have also personally directed, reviewed, and agree with the discharge instructions and disposition. (Mariya Arthur) Physician Patient Turnover Patient Signed Over To: Marissa Schneider Handoff Comments: FU LABS, DISPO <Mariya Arthur - Last Filed: 03/13/18 13:08> Addendum <Mariya Arthur - Last Filed: 03/13/18 13:08> <Marissa Schneider - Last Filed: 03/13/18 17:37> Addendum: 03/13/18 17:35 On reassessment, patient is resting comfortably and states she feels much better (after IV fluids and IV insulin). Repeat VBG shows improving lactate and normal pH, no evidence of ketoacidosis on labs. Patient is well appearing, with normal vitals, and is tolerating PO. She is comfortable being discharged home, and was instructed to followup with PMD/clinic in 1-2 days. She understands she should return to ED if symptoms worsen (Marissa Schneider)
[2018-03-13] MEDS ORDERED: Labetalol 25mg/5ml Syringe IVP STA (12:22)
[2018-03-13 12:37] LABS: BASO # 0.1 K/uL (0.0-0.2); HEMOGLOBIN 15.4 g/dL (11.0-16.0); LYMPH # 1.2 K/uL (1.0-4.3); LYMPH % 8.9 % (20.0-40.0); MEAN CELL VOLUME 85.4 fL (81.0-99.0); MEAN CORPUSCULAR HEMOGLOBIN 28.4 pg (27.0-31.0); MEAN CORPUSCULAR HGB CONC 33.3 g/dL (33.0-37.0); MEAN PLATELET VOLUME 9.2 fL (7.2-11.7); MONO # 0.9 K/uL (0.0-0.8); MONO % 6.7 % (0.0-10.0); NEUT # 10.9 K/uL (1.8-7.0); NEUT % 83.4 % (50.0-75.0); NRBC % 0.1 % (0.0-2.0); PLATELET COUNT 330 K/uL (130-400); RBC 5.44 Mil/uL (3.80-5.20); RED CELL DISTRIBUTION WIDTH 14.4 % (11.5-14.5)
[2018-03-13 12:47] LABS: SQUAMOUS EPITHIAL 18 /hpf (0-5); URINE BACTERIA RARE (<OCC); URINE BILIRUBIN NEGATIVE (NEGATIVE); URINE BLOOD 2+ (NEGATIVE); URINE CLARITY Hazy (Clear); URINE COLOR Yellow (YELLOW); URINE GLUCOSE (UA) 3+ mg/dL (Normal); URINE LEUKOCYTE ESTERASE NEG Leu/uL (Negative); URINE PROTEIN 2+ mg/dL (NEGATIVE); URINE UROBILINOGEN NORMAL mg/dL (0.2-1.0)
[2018-03-13 13:06] LABS: ALBUMIN 5.4 g/dL (3.5-5.0); ALT/SGPT 12 U/L (9-52); AST/SGOT 56 U/L (14-36); BLOOD UREA NITROGEN 29 mg/dL (7-17); CALCIUM 10.3 mg/dl (8.6-10.4); GFR AFRICAN-AMERICAN > 60; GFR NON-AFRICAN AMERICAN > 60; LIPASE 133 U/L (23-300); LYMPHOCYTE 10 % (20-40); MONOCYTE 7 % (0-10); NEUTROPHIL 83 % (50-75); PLATELET ESTIMATE NORMAL (NORMAL); TOTAL CELLS COUNTED 100
[2018-03-13] MEDS ORDERED: Sodium Chloride 0.9% 1,000 ML ONE (13:11)
[2018-03-13] MEDS ORDERED: Labetalol 25mg/5ml Syringe ONE (13:11)
[2018-03-13 13:32] LABS: VENOUS BLOOD GAS BASE EXCESS 1.7 mmol/L (0.0-2.0); VENOUS BLOOD GAS PCO2 48 mmHg (40-60); VENOUS BLOOD GAS PO2 40 mm/Hg (30-55); VENOUS BLOOD PH 7.37 (7.32-7.43)
[2018-03-13 13:34] LABS: BARBITURATES, UR NEGATIVE (NEGATIVE); BENZODIAZEPINES, UR NEGATIVE (NEGATIVE); OPIATES, UR NEGATIVE (NEGATIVE); PHENCYCLIDINE, UR NEGATIVE (NEGATIVE)
--- NOTE | 2018-03-13 13:36 | RAD ---
PROCEDURE: CHEST RADIOGRAPH, 1 VIEW HISTORY: abd pain HTN COMPARISON: 03/02/2015 FINDINGS: LUNGS: Clear. PLEURA: No pneumothorax or pleural fluid seen. CARDIOVASCULAR: Normal. OSSEOUS STRUCTURES: No significant abnormalities. VISUALIZED UPPER ABDOMEN: Normal. OTHER FINDINGS: None. IMPRESSION: No active disease.
[2018-03-13] MEDS ORDERED: Sodium Chloride 0.9% 500 ML IV ONE (14:05)
[2018-03-13] MEDS ORDERED: (Novolin R) Insulin Human Regular 100 units/ml vial IV STA ×2 (14:07→16:20)
[2018-03-13] MEDS ORDERED: (Novolin R) Insulin Human Regular 100 units/ml vial ONE ×2 (14:24→16:39)
[2018-03-13 16:29] LABS: VENOUS BLOOD GAS BASE EXCESS 4.3 mmol/L (0.0-2.0); VENOUS BLOOD GAS PCO2 57 mmHg (40-60); VENOUS BLOOD GAS PO2 37 mm/Hg (30-55); VENOUS BLOOD PH 7.35 (7.32-7.43)
[2018-03-13 17:14] VITALS: BP 156/69; PULSE 97; RESP 16; O2SAT 100
--- NOTE | 2018-03-14 15:40 | CARD ---
APPROVED REPORT EKG Measurement Heart [id number] <Conclusion> Sinus tachycardia Biatrial enlargement Left axis deviation Left ventricular hypertrophy Cannot rule out Septal infarct, age undetermined Abnormal ECG
== END 2018-03-13 17:43 | disposition home or self-care (01) ==
LOC: C.ER 10:52
DX: E11.65 Type 2 diabetes mellitus with hyperglycemia (principal); I10 Essential (primary) hypertension
CPT/HCPCS: 71045; 80053; 81001; 82803; 82948; 83690; 84484; 85025; 93005; 96374; 96375; 96376; 99285; G0480; J7030